=== PATIENT | male | born 1940 | race Caucasian/White ===

== ENCOUNTER → 2017-02-13 | Outpatient (CLI) | payer OTHER | LOC: BMCIMAGING 11:59 | PROVIDERS: ATTEND Internal Medicine | DX: I51.7 Cardiomegaly (principal); M54.6 Pain in thoracic spine ==

== ENCOUNTER 2017-05-27 08:24 | Emergency (ER) | payer OTHER ==
[2017-05-27] MEDS ORDERED: TRANEXAMIC ACID 1,000 MG/10 ML VIAL TP ONE (08:58)
--- NOTE | 2017-05-27 09:06 | EDPHY ---
H & P Time Seen by Provider: 05/27/17 08:46 HPI/ROS: CHIEF COMPLAINT: Epistaxis HISTORY OF PRESENT ILLNESS: 77-year-old male presents to the emergency department with epistaxis. Symptoms began last evening. Was able to control this on his own. He slept fine last night and then when he woke up this morning it started bleeding again. Patient takes Eliquis for history of atrial fibrillation. He has been taking his medication as prescribed. He has never had problems with epistaxis in the past. He denies chest pain or difficulty breathing. Denies feeling lightheaded. No headache. No visual changes. No nausea or vomiting. REVIEW OF SYSTEMS: Constitutional: No fever, no chills. Eyes: No double or blurry vision. ENT: No sore throat. Respiratory: No cough, no shortness of breath. Cardiac: No chest pain. Gastrointestinal: No abdominal pain, vomiting or diarrhea. Genitourinary: No dysuria. Musculoskeletal: No neck or back pain. Skin: No rashes. Neurological: No headache. Past Medical/Surgical History: Gout, atrial fibrillation, hypothyroid Social History: lives in [place] Smoking Status: Former smoker Physical Exam: General Appearance: Alert, no distress. No apparent distress. Eyes: Pupils equal and round. Extraocular motions are all intact. ENT: Mouth: Mucous membranes moist. Blood noted posterior pharynx. Respiratory: No wheezing, rhonchi, or rales, lungs are clear to auscultation. Cardiovascular: Regular rate and rhythm. Gastrointestinal: Abdomen is soft and nontender, no masses, no rebound or guarding, bowel sounds normal. Neurological: Alert and oriented x 3, cranial nerves II through XII grossly intact Skin: Warm and dry, no rashes. Musculoskeletal: Nontender to palpate along the cervical, thoracic or lumbar spine. Neck is supple. Extremities: Full range of motion and no peripheral edema. Psychiatric: Patient is oriented X 3, there is no agitation. Constitutional: Initial Vital Signs Temperature (C) 36.4 C 05/27/17 08:25 Heart Rate 107 H 05/27/17 08:25 Respiratory Rate 16 05/27/17 08:25 Blood Pressure 127/85 H 05/27/17 08:25 O2 Sat (%) 91 L 05/27/17 08:25 O2 Delivery Mode Room Air Allergies/Adverse Reactions: No Known Allergies Allergy (Unverified 01/28/12 16:52) Home Medications: Medication Instructions Recorded Allopurinol [Allopurinol 300 MG 300 mg PO DAILY 10/12/11 (RX)] Eliquis 05/27/17 Levothyroxine 05/27/17 Medical Decision Making Procedures: After consent was obtained from the patient, gauze soaked with TXA and 1% lidocaine without epinephrine was placed in the patient's nose. Clamp was applied. Patient had more hyperemia noted in the left nostril. There is no obvious acute bleeding. Silver nitrate was used in the left nostril. The patient was observed for over 30 min and had no recurring bleeding. No blood in the posterior pharynx. He is comfortable being discharged home. He was encouraged to use nasal lubricant. He was given ENT referral. No rhino rocket needed. Differential Diagnosis: Including but not limited to epistaxis, retained foreign body, anemia - Data Points Medications Given: Discontinued Medications Tranexamic Acid (Cyklokapron) 500 mg TP EDNOW ONE Stop: 05/27/17 08:59 Last Admin: 05/27/17 10:24 Dose: 500 mg Departure - Departure Disposition: Home, Routine, Self-Care Clinical Impression: Epistaxis Condition: Good Instructions: Nosebleed (ED) Additional Instructions: Apply Vaseline or other nasal lubricant inside her nose as discussed especially at night time prior to using her CPAP machine. Try not to blow your nose for at least 48 hr. Follow up with ENT if you have any questions or concerns especially if you have any recurring nosebleeds. Referrals: Max Roland MD [Medical Doctor] - As per Instructions (ENT on-call)
[2017-05-27] MEDS ORDERED: SILVER NITRATE APPLICATOR 1 APPL TP ONE (09:45)
[2017-05-27 10:29] VITALS: BP 132/81; PULSE 81; RESP 18; TEMP 98.2; O2SAT 98
== END 2017-05-27 10:29 | disposition home or self-care (01) ==
LOC: EDUNIT#
PROC: 095KXZZ Destruction of Nasal Mucosa and Soft Tissue, External Approach (ICD-10-PCS; principal; 2017-05-27)
DX: R04.0 Epistaxis (principal); Z79.01 Long term (current) use of anticoagulants; Z87.891 Personal history of nicotine dependence

== ENCOUNTER 2017-05-30 05:13 | Emergency (ER) | payer OTHER ==
[2017-05-30 05:19] VITALS: RESP 18; O2SAT 93
[2017-05-30] MEDS ORDERED: TRANEXAMIC ACID 1,000 MG/10 ML VIAL TP ONE (05:26)
[2017-05-30] MEDS ORDERED: OXYMETAZOLINE 30 ML NASAL SPRAY ONE (05:35)
[2017-05-30] MEDS ORDERED: SILVER NITRATE APPLICATOR 1 APPL TP ONE (05:35)
--- NOTE | 2017-05-30 06:11 | EDPHY ---
H & P Stated Complaint: epistaxis x 1 hr, using blood thinners Time Seen by Provider: 05/30/17 05:41 HPI/ROS: HPI The patient presents with epistaxis of his left naris which began about an hour ago. This is recurrent. He was in the emergency department several days ago for the same. He had TXA packing placed a and cautery performed with resolution of his symptoms. He has not yet followed up with Dr. Roland of ENT. The bleeding is described as the slow dripping sensation. He put on a nasal clamp prior to arrival which has slowed the bleeding significantly. He does sleep with a CPAP machine and tonight was the 1st night using it so he wonders if this is what is causing the bleeding. He is also on Eliquis. REVIEW OF SYSTEMS Constitutional: No fever, no chills. Eyes: No discharge. ENT: No sore throat. Cardiovascular: No chest pain, no palpitations. Respiratory: No cough, no shortness of breath. Gastrointestinal: No abdominal pain, no vomiting. Genitourinary: No hematuria. Musculoskeletal: No back pain. Skin: No rashes. Neurological: No headache. PMHx: History of epistaxis seen in the ER a few days ago Soc Hx: Lives at home with his PHYSICAL General Appearance: Alert, no distress Eyes: Pupils equal and round no pallor or injection ENT, Mouth: Mucous membranes moist, small amount of bleeding from from left naris Respiratory: Breathing comfortably Neurological: A&O, moves all extremities Skin: Warm and dry, no rashes Musculoskeletal: Neck is supple non tender Extremities: symmetrical, full range of motion Psychiatric: Patient is oriented X 3, there is no agitation Source: Patient Exam Limitations: No limitations - Personal History Tetanus Vaccine Date: UNKNOWN - Medical/Surgical History Hx Asthma: No Hx Chronic Respiratory Disease: No Hx Diabetes: No Hx Cardiac Disease: Yes Hx Renal Disease: No Hx Cirrhosis: No Hx Alcoholism: No Hx HIV/AIDS: No Hx Splenectomy or Spleen Trauma: No Other PMH: afib, gout, hypothyroid - Social History Smoking Status: Former smoker Constitutional: Initial Vital Signs Heart Rate 61 05/30/17 05:16 Respiratory Rate 18 05/30/17 05:16 Blood Pressure 109/75 05/30/17 05:16 O2 Sat (%) 93 05/30/17 05:16 O2 Delivery Mode Room Air Allergies/Adverse Reactions: No Known Allergies Allergy (Verified 05/30/17 05:18) Home Medications: Medication Instructions Recorded Allopurinol [Allopurinol 300 MG 300 mg PO DAILY 10/12/11 (RX)] Eliquis 05/27/17 Levothyroxine 05/27/17 Diltiazem 05/30/17 Medical Decision Making Procedures: NOSE BLEED Procedure: Epistaxis control. Indication: nosebleed not controlled by direct pressure. Risks, benefits, alternatives discussed with patient and consent obtained. The left nares was anesthetized with lidocaine with epinephrine. The anterior epistaxis was identified. The patient was treated with packing. Cotton gauze soaked in TXA Following the procedure the patient was re-examined and the bleeding was well controlled. The patient tolerated the procedure well. The procedure was performed by myself. Differential Diagnosis: 77-year-old male on Eliquis with recurrent left-sided anterior epistaxis. Recently packing cauterized. Here bleeding is quite minimal, improved after using nasal clamp. I packed him with tranexamic acid. The bleeding has stopped. He will be discharged and will call ENT today for a follow-up appointment. - Data Points Medications Given: Discontinued Medications Tranexamic Acid (Cyklokapron) 500 mg TP EDNOW ONE Stop: 05/30/17 05:27 Last Admin: 05/30/17 06:04 Dose: Not Given Departure - Departure Disposition: Home, Routine, Self-Care Clinical Impression: Acute anterior epistaxis Condition: Good Instructions: Nosebleed (ED) Referrals: Anatoly Bunn MD [Primary Care Provider] - As per Instructions Max Roland MD [Medical Doctor] - As per Instructions
[2017-05-30 06:23] VITALS: BP 126/80; PULSE 60; TEMP 98.2
== END 2017-05-30 06:30 | disposition home or self-care (01) ==
PROC: 2Y41X5Z Packing of Nasal Region using Packing Material (ICD-10-PCS; principal; 2017-05-30)
DX: R04.0 Epistaxis (principal); Z79.01 Long term (current) use of anticoagulants; Z87.891 Personal history of nicotine dependence

== ENCOUNTER 2017-06-01 03:36 | Emergency (ER) | payer OTHER ==
[2017-06-01 03:42] VITALS: BP 152/99; PULSE 85; RESP 18; TEMP 97.5; O2SAT 92
--- NOTE | 2017-06-01 04:16 | EDPHY ---
H & P Stated Complaint: nosebleed x1 hour [employer]PER[employer] Time Seen by Provider: 06/01/17 03:46 HPI/ROS: HPI The patient presents with epistaxis which began about 30 min ago. This is his 3rd episode now on the last 1 week. He was initially cauterized in the emergency department. I saw him 2 days ago with rebleed and was able to treat it with tranexamic acid. He awoke this morning and began to have bleeding immediately from his left naris. He used his nasal clamp. He is on Eliquis, he has not been using his CPAP machine. REVIEW OF SYSTEMS Constitutional: No fever, no chills. Skin: No rashes. Neurological: No headache. PMHx: Atrial fibrillation Soc Hx: Lives at home with his PHYSICAL General Appearance: Alert, no distress Eyes: Pupils equal and round no pallor or injection ENT, Mouth: Mucous membranes moist, left naris with small amount of bleeding, no bleeding site identified Respiratory: Breathing comfortably Neurological: A&O, moves all extremities Skin: Warm and dry, no rashes Extremities: symmetrical, full range of motion Psychiatric: Patient is oriented X 3, there is no agitation Source: Patient Exam Limitations: No limitations - Personal History Current Tetanus/Diphtheria Vaccine: Unsure Tetanus Vaccine Date: UNKNOWN - Medical/Surgical History Hx Asthma: No Hx Chronic Respiratory Disease: No Hx Diabetes: No Hx Cardiac Disease: Yes Hx Renal Disease: No Hx Cirrhosis: No Hx Alcoholism: No Hx HIV/AIDS: No Hx Splenectomy or Spleen Trauma: No Other PMH: afib, gout, hypothyroid, HTN - Social History Smoking Status: Former smoker Constitutional: Initial Vital Signs Temperature (C) 36.4 C 06/01/17 03:37 Heart Rate 85 06/01/17 03:37 Respiratory Rate 18 06/01/17 03:37 Blood Pressure 152/99 H 06/01/17 03:37 O2 Sat (%) 92 06/01/17 03:37 O2 Delivery Mode Room Air Allergies/Adverse Reactions: No Known Allergies Allergy (Verified 05/30/17 05:18) Home Medications: Medication Instructions Recorded Allopurinol [Allopurinol 300 MG 300 mg PO DAILY 10/12/11 (RX)] Eliquis 05/27/17 Levothyroxine 05/27/17 Diltiazem 05/30/17 Medical Decision Making Procedures: NOSE BLEED Procedure: Epistaxis control. Indication: nosebleed not controlled by direct pressure. Risks, benefits, alternatives discussed with patient and consent obtained. The left nares was anesthetized with lidocaine with epinephrine. The anterior epistaxis was identified. The patient was treated with packing. I inserted a 5.5 cm rhino rocket Following the procedure the patient was re-examined and the bleeding was well controlled. The patient tolerated the procedure well. The procedure was performed by myself. Differential Diagnosis: This is a 77-year-old male on Eliquis for atrial fibrillation who presents with recurrent epistaxis. Plan for treatment with rhino rocket given recurrence of symptoms. I will refer to ENT. I discussed the case with the on-call PA for [facility] in the morning hours. 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 They will see him 5 days after that if he can come off of it. The patient already has an appointment scheduled for next week so I called and left a message on advised him to keep the appointment and call his middle school tutor. He should be able to keep the rhino rocket in until then. Departure - Departure Disposition: Home, Routine, Self-Care Clinical Impression: Acute anterior epistaxis Condition: Good Instructions: Nosebleed (ED) Additional Instructions: Please return to the emergency department if your worse in any way. Otherwise we will try to arrange for ENT follow-up in the morning. Referrals: Anatoly Bunn MD [Primary Care Provider] - As per Instructions Max Roland MD [Medical Doctor] - As per Instructions
== END 2017-06-01 04:19 | disposition home or self-care (01) ==
PROC: 2Y41X5Z Packing of Nasal Region using Packing Material (ICD-10-PCS; principal; 2017-06-01)
DX: R04.0 Epistaxis (principal); I10 Essential (primary) hypertension; Z87.891 Personal history of nicotine dependence; Z79.01 Long term (current) use of anticoagulants

== ENCOUNTER → 2017-06-15 | Outpatient (CLI) | payer OTHER | LOC: FIMAGING 07:38 | PROVIDERS: ATTEND Internal Medicine | DX: K76.0 Fatty (change of) liver, not elsewhere classified (principal); R53.83 Other fatigue; R63.0 Anorexia; R63.4 Abnormal weight loss ==

== ENCOUNTER → 2017-07-04 | Outpatient (CLI) | payer OTHER ==
[~2017-07-04] MED LIST: IOPAMIDOL (ISOVUE-300) 100 ML BTL ONE; IOPAMIDOL (ISOVUE-300) 150 ML BTL ONE; LIDOCAINE 2% JELLY 20 ML (UROJECT) ONE
== END ==
LOC: FIMAGING 08:35
PROVIDERS: ATTEND Internal Medicine
DX: M54.5 Low back pain (principal); M51.34 Other intervertebral disc degeneration, thoracic region
CPT/HCPCS: Q9967

== ENCOUNTER → 2017-07-11 | Outpatient (CLI) | payer OTHER | LOC: FIMAGING 07:51 | PROVIDERS: ATTEND Internal Medicine | DX: M54.6 Pain in thoracic spine (principal); G89.29 Other chronic pain; M51.34 Other intervertebral disc degeneration, thoracic region; M40.204 Unspecified kyphosis, thoracic region; M51.24 Other intervertebral disc displacement, thoracic region; G95.29 Other cord compression ==

== ENCOUNTER → 2017-07-28 | Outpatient (CLI) | payer OTHER | LOC: FIMAGING 09:21 | PROVIDERS: ATTEND Neurological Surgery | DX: M51.36 Other intervertebral disc degeneration, lumbar region (principal); M50.30 Other cervical disc degeneration, unspecified cervical region ==

== ENCOUNTER → 2017-09-13 | Outpatient (CLI) | payer OTHER | LOC: BMCIMAGING 09:32 | PROVIDERS: ATTEND Internal Medicine | DX: J32.2 Chronic ethmoidal sinusitis (principal); J32.0 Chronic maxillary sinusitis ==

== ENCOUNTER 2018-02-06 11:27 | Inpatient (IN) | payer OTHER ==
[2018-02-06] MEDS ORDERED: ONDANSETRON 4 MG/2 ML VIAL IVP ONE (11:31)
[2018-02-06] MEDS ORDERED: ONDANSETRON 4 MG/2 ML VIAL ONE (11:31)
[2018-02-06] MEDS ORDERED: PANTOPRAZOLE SODIUM 40 MG VIAL IVP ONE (12:05)
[2018-02-06] MEDS ORDERED: NS 1,000 ML IV ONE (12:05)
--- NOTE | 2018-02-06 12:05 | EDPHY ---
H & P Stated Complaint: CP Time Seen by Provider: 02/06/18 11:54 HPI/ROS: CHIEF COMPLAINT: Chest pain, vomiting HISTORY OF PRESENT ILLNESS: 77-year-old male with hypertension and atrial fibrillation on Eliquis presents with chest pain and vomiting. Onset of epigastric and chest pain going up and down his chest last evening. [place] like heartburn, took Tums without relief. Multiple episodes of vomiting. When he awoke this morning, no pain or nausea. Onset of recurrent pain and vomiting 1 hr prior to arrival. Pain has resolved and nausea has resolved now. Concern regarding food poisoning. No associated shortness of breath, fever or diarrhea. REVIEW OF SYSTEMS: complete 10 point ROS reviewed and is negative except for the noted elements in the HPI - Personal History Tetanus Vaccine Date: UNKNOWN - Medical/Surgical History Hx Asthma: No Hx Chronic Respiratory Disease: No Hx Diabetes: No Hx Cardiac Disease: Yes Hx Renal Disease: No Hx Cirrhosis: No Hx Alcoholism: No Hx HIV/AIDS: No Hx Splenectomy or Spleen Trauma: No Other PMH: afib, gout, hypothyroid, HTN - Social History Smoking Status: Former smoker Alcohol Use: Other (2-3 drinks/day) Drug Use: None Additional Social History: - Physical Exam Exam: General Appearance: Alert, pleasant Eyes: Pupils equal and round, no conjunctival pallor or injection ENT, Mouth: Mucous membranes moist Neck: Normal inspection Respiratory: Lungs are clear to auscultation Cardiovascular: Regular rate and rhythm Gastrointestinal: Abdomen is soft, epigastric tenderness Neurological: A&O, nonfocal, normal gait Skin: Warm and dry, no rash Extremities: Nontender, no pedal edema Psychiatric: Mood and affect normal Constitutional: Initial Vital Signs Temperature (C) 37.7 C 02/06/18 11:30 Heart Rate 85 02/06/18 11:30 Respiratory Rate 18 02/06/18 11:30 Blood Pressure 104/69 02/06/18 11:30 O2 Sat (%) 89 L 02/06/18 11:30 O2 Delivery Mode Nasal Cannula O2 (L/minute) 2 Allergies/Adverse Reactions: No Known Allergies Allergy (Verified 05/30/17 05:18) Home Medications: Medication Instructions Recorded Allopurinol [Allopurinol 300 MG 300 mg PO DAILY 10/12/11 (RX)] Apixaban [Eliquis] 5 mg PO BID 05/27/17 Diltiazem HCl [Cartia XT 180mg] 180 mg PO DAILY 05/30/17 Fluticasone Nasal [Flonase Nasal 1 sprays NASAL DAILY PRN 02/06/18 [place] (RX)] Levothyroxine [Synthroid 75 mcg 75 mcg PO DAILY06 02/06/18 (*)] Naproxen Sodium [Aleve 220 MG (*)] 220 mg PO BID PRN 02/06/18 Medical Decision Making - Diagnostics EKG Interpretation: EKG interpreted by me reveals normal sinus rhythm, rate 83, multiple PVCs, right bundle branch block. Interpretation: Abnormal EKG Imaging Results: Imaging Impressions Chest X-Ray 02/06/18 11:55 Impression: Stable chest without acute cardiopulmonary process. Abdomen Ultrasound 02/06/18 12:36 Impression: 1. Cholelithiasis without sonographic evidence of acute cholecystitis. 2. Fatty liver. Findings and recommendations discussed with KEO CAPONE at 1313 hour, 2017. Imaging: Discussed imaging studies w/ square dance caller Radiologist ED Course/Re-evaluation: This patient presents with chest pain and vomiting. Stat EKG reveals no evidence of ischemia. Initial troponin is normal. Clinical scenario suggests GI etiology symptoms. Initial laboratory studies reveal elevated LFTs. Right upper quadrant ultrasound ordered and reveals gallstones, without evidence of cholecystitis. Lipase is pending. Patient feels better, no pain now. 3:00 p.m.-lipase is still pending. Serial dilutions of lipase by company laborer b/c of elevation. d/w pt, agrees to admission. Feels better now. No pain. Will admit to the hospitalist service for acute pancreatitis. Differential Diagnosis: Differential diagnosis includes though it is not limited to appendicitis, cholecystitis, diverticulitis, pyelonephritis, bowel perforation, small bowel obstruction. - Data Points Laboratory Results: Laboratory Results 02/06/18 12:45 02/06/18 11:40 02/06/18 02/06/18 02/06/18 12:45 11:40 11:40 WBC 16.25 10^3/uL H 10^3/uL (3.80-9.50) RBC 4.58 10^6/uL 10^6/uL (4.40-6.38) Hgb 15.8 g/dL g/dL (13.7-17.5) Hct 44.9 % % (40.0-51.0) MCV 98.0 fL fL (81.5-99.8) MCH 34.5 pg H pg (27.9-34.1) MCHC 35.2 g/dL g/dL (32.4-36.7) RDW 13.3 % % (11.5-15.2) Plt Count 189 10^3/uL 10^3/uL (150-400) MPV 10.0 fL fL (8.7-11.7) Neut % (Auto) Not Reported Lymph % (Auto) Not Reported [place] % (Auto) Not Reported Eos % (Auto) Not Reported Baso % (Auto) Not Reported Nucleat RBC Rel Count Not Reported Absolute Neuts (auto) Not Reported Absolute Lymphs (auto) Not Reported Absolute Monos (auto) Not Reported Absolute Eos (auto) Not Reported Absolute Basos (auto) Not Reported Absolute Nucleated RBC Not Reported Immature Gran % Not Reported Seg Neutrophils % 92.0 % % Band Neutrophils % 0.0 % % Lymphocytes % 3.0 % % Monocytes % 5.0 % % Eosinophils % 0.0 % % Basophils % 0.0 % % Metamyelocytes % 0.0 % % Myelocytes % 0.0 % % Promyelocytes % 0.0 % % Blast Cells % 0.0 % % Immature Gran # Not Reported Absolute Seg Neuts 14.95 10^/uL H 10^/uL (1.70-6.50) Absolute Band Neuts 0.00 10^3/uL 10^3/uL (0.00-0.70) Absolute Lymphocytes 0.49 10^3/uL L 10^3/uL (1.00-3.00) Absolute Monocytes 0.81 10^3/uL H 10^3/uL (0.30-0.80) Absolute Eosinophils 0.00 10^3/uL L 10^3/uL (0.03-0.40) Absolute Basophils 0.00 10^3/uL L 10^3/uL (0.02-0.10) Absolute Metamyelocyte 0.00 10^3/mL 10^3/mL (0.00-0.00) Absolute Myelocytes 0.00 10^3/mL 10^3/mL (0.00-0.00) Absolute Promyelocytes 0.00 10^3/uL 10^3/uL (0.00-0.00) Absolute Plasma Cells 0.00 10^3/uL 10^3/uL (0.00-0.00) Nucleated RBCs 0 /100 WBC /100 WBC (0-0) Absolute Blast Cells 0.00 10^3/uL 10^3/uL (0.00-0.00) Plasma Cells % 0.0 % % Platelet Estimate ADEQUATE (ADEQ) D-Dimer Sodium 138 mEq/L mEq/L (135-145) Potassium 4.3 mEq/L mEq/L (3.3-5.0) Chloride 102 mEq/L mEq/L (97-110) Carbon Dioxide 27 mEq/l mEq/l (22-31) Anion Gap 9 mEq/L mEq/L (8-16) BUN 20 mg/dL mg/dL (7-23) Creatinine 0.9 mg/dL mg/dL (0.7-1.3) Estimated GFR > 60 Glucose 104 mg/dL H mg/dL (70-100) Calcium 9.5 mg/dL mg/dL (8.5-10.4) Total Bilirubin 4.5 mg/dL H mg/dL (0.1-1.4) Conjugated Bilirubin 2.2 mg/dL H mg/dL (0.0-0.5) Unconjugated Bilirubin 2.3 mg/dL H mg/dL (0.0-1.1) AST 461 IU/L H IU/L (17-59) ALT 288 IU/L H IU/L (21-72) Alkaline Phosphatase 121 IU/L IU/L (38-126) POC Troponin I NT-Pro-B Natriuret Pep 1200 pg/mL H pg/mL (0-450) Total Protein 6.4 g/dL g/dL (6.3-8.2) Albumin 3.6 g/dL g/dL (3.5-5.0) Lipase 6500 IU/L H IU/L (23-300) 02/06/18 02/06/18 11:40 11:33 WBC RBC Hgb Hct MCV MCH MCHC RDW Plt Count MPV Neut % (Auto) Lymph % (Auto) [place] % (Auto) Eos % (Auto) Baso % (Auto) Nucleat RBC Rel Count Absolute Neuts (auto) Absolute Lymphs (auto) Absolute Monos (auto) Absolute Eos (auto) Absolute Basos (auto) Absolute Nucleated RBC Immature Gran % Seg Neutrophils % Band Neutrophils % Lymphocytes % Monocytes % Eosinophils % Basophils % Metamyelocytes % Myelocytes % Promyelocytes % Blast Cells % Immature Gran # Absolute Seg Neuts Absolute Band Neuts Absolute Lymphocytes Absolute Monocytes Absolute Eosinophils Absolute Basophils Absolute Metamyelocyte Absolute Myelocytes Absolute Promyelocytes Absolute Plasma Cells Nucleated RBCs Absolute Blast Cells Plasma Cells % Platelet Estimate D-Dimer 0.93 ug/mLFEU H ug/mLFEU (0.00-0.50) Sodium Potassium Chloride Carbon Dioxide Anion Gap BUN Creatinine Estimated GFR Glucose Calcium Total Bilirubin Conjugated Bilirubin Unconjugated Bilirubin AST ALT Alkaline Phosphatase POC Troponin I 0.02 ng/mL ng/mL (0.00-0.08) NT-Pro-B Natriuret Pep Total Protein Albumin Lipase Medications Given: Discontinued Medications Sodium Chloride (Ns) 1,000 mls @ 0 mls/hr IV ONCE ONE; Wide Open PRN Reason: Protocol Stop: 02/06/18 12:06 Last Admin: 02/06/18 12:16 Dose: 1,000 mls Ondansetron HCl (Zofran) 4 mg IVP EDNOW ONE Stop: 02/06/18 11:32 Last Admin: 02/06/18 11:37 Dose: 4 mg Pantoprazole Sodium (Protonix) 40 mg IVP EDNOW ONE Stop: 02/06/18 12:06 Last Admin: 02/06/18 12:17 Dose: 40 mg Point of Care Test Results: Chemistry 02/06/18 11:33 POC Troponin I 0.02 ng/mL ng/mL (0.00-0.08) Departure - Departure Disposition: [facility] Inpatient Acute Clinical Impression: Acute pancreatitis Qualifiers: Pancreatitis type: unspecified pancreatitis type Acute pancreatitis complication: unspecified Qualified Code(s): K85.90 - Acute pancreatitis without necrosis or infection, unspecified Condition: Fair
[2018-02-06 13:09] LABS: PLATELET COUNT 189 10^3/uL (150-400)
--- NOTE | 2018-02-06 14:28 | CPEKG ---
Test Reason : OPEN Blood Pressure : / mmHG Vent. Rate : 083 BPM Atrial Rate : 082 BPM P-R Int : 180 ms QRS Dur : 143 ms QT Int : 408 ms P-R-T Axes : 030 -64 003 degrees QTc Int : 480 ms Sinus rhythm Ventricular trigeminy Probable left atrial enlargement RBBB and LAFB Confirmed by Sherri Sinclair ([id number]) on 02/06/2018 2:28:02 PM Referred By: Confirmed By:Sherri Sinclair
[2018-02-06] MEDS ORDERED: HYDROmorphone HCL 0.5 MG/0.5 ML SYR IVP PRN (15:14)
[2018-02-06] MEDS ORDERED: ONDANSETRON DISINTEGRATING 4 MG TAB PO PRN (15:14)
[2018-02-06] MEDS ORDERED: ONDANSETRON 4 MG/2 ML VIAL IVP PRN (15:14)
[2018-02-06] MEDS ORDERED: PROMETHAZINE HCL 25 MG/ML INJ IVP PRN (15:14)
[2018-02-06] MEDS ORDERED: oxyCODONE IR 5 MG TAB PO PRN (15:14)
[2018-02-06] MEDS ORDERED: ACETAMINOPHEN 325 MG TAB PO PRN (15:14)
[2018-02-06] MEDS ORDERED: FLUTICASONE NASAL 120 SPRAYS/16 GM MDI EACHNARE PRN (15:18)
--- NOTE | 2018-02-06 15:36 | PDGENHP ---
History and Physical - Chief Complaint abdominal pain - History of Present Illness 77 yo M w/PMH of HTN, a fib presenting with epigastric and chest pain beginning last night. He notes he ate a late dinner and then several hours later developed severe mid epigastric/chest and abdominal pain. It was burning and associated with nausea and vomiting. He has never had pain like this in the past. It continued until he came to the ER and was given pain medicine and it has resolved since then. He notes that he does drink several alcoholic beverages per day, sometimes more, but did not drink more heavily than usual in the last couple of days. He has not had fever or chills, he has not had any chest pain prior to this episode, he has no history of heart disease or lung disease other than a fib. History Information - Allergies/Home Medication List Allergies/Adverse Reactions: No Known Allergies Allergy (Verified 05/30/17 05:18) Home Medications: Allopurinol [Allopurinol 300 MG (RX)] 300 mg PO DAILY 10/12/11 [Last Taken 02/06] Apixaban [Eliquis] 5 mg PO BID 05/27/17 [Last Taken 02/06/18] Diltiazem HCl [Cartia XT 180mg] 180 mg PO DAILY 05/30/17 [Last Taken 02/06/18] Fluticasone Nasal [Flonase Nasal [place] (RX)] 1 sprays NASAL DAILY PRN 02/06/18 [ Last Taken Unknown] Levothyroxine [Synthroid 75 mcg (*)] 75 mcg PO DAILY06 02/06/18 [Last Taken ] Naproxen Sodium [Aleve 220 MG (*)] 220 mg PO BID PRN 02/06/18 [Last Taken 1 Week Ago ~01/30/18] I have personally reviewed and updated: family history, medical history, social history, surgical history - Past Medical History atrial fibrillation, hypertension, pulmonary embolism Additional medical history: gout. hypothyroid - Surgical History Reports: no pertinent surgical hx - Family History Positive for: non-pertinent - Social History Smoking Status: Former smoker Alcohol Use: Other (2-3 drinks/day) Drug Use: None Review of Systems Review of Systems: ROS: 10pt was reviewed & negative except for what was stated in HPI & below Physical Exam Physical Exam: Temp Pulse Resp BP Pulse Ox 37.7 C 74 18 119/94 H 98 02/06/18 11:30 02/06/18 14:54 02/06/18 14:54 02/06/18 14:54 02/06/18 14:54 Constitutional: no apparent distress, appears nourished, obese Eyes: PERRL Ears, Nose, Mouth, Throat: moist mucous membranes, hearing normal Cardiovascular: regular rate and rhythym, no murmur, rub, or gallop, edema Respiratory: no respiratory distress, no rales or rhonchi, clear to auscultation Gastrointestinal: soft, non-tender abdomen, No normoactive bowel sounds, No rebound, No distension Genitourinary: no bladder tenderness Skin: warm, normal color Musculoskeletal: no muscle tenderness Neurologic: AAOx3 Psychiatric: interacting appropriately, not anxious, not encephalopathic Lab Data & Imaging Review 02/06/18 12:45 02/06/18 11:40 WBC 16.25 10^3/uL (3.80-9.50) H 02/06/18 12:45 RBC 4.58 10^6/uL (4.40-6.38) 02/06/18 12:45 Hgb 15.8 g/dL (13.7-17.5) 02/06/18 12:45 Hct 44.9 % (40.0-51.0) 02/06/18 12:45 MCV 98.0 fL (81.5-99.8) 02/06/18 12:45 MCH 34.5 pg (27.9-34.1) H 02/06/18 12:45 MCHC 35.2 g/dL (32.4-36.7) 02/06/18 12:45 RDW 13.3 % (11.5-15.2) 02/06/18 12:45 Plt Count 189 10^3/uL (150-400) 02/06/18 12:45 MPV 10.0 fL (8.7-11.7) 02/06/18 12:45 Neut % (Auto) Not Reported 02/06/18 12:45 Lymph % (Auto) Not Reported 02/06/18 12:45 [place] % (Auto) Not Reported 02/06/18 12:45 Eos % (Auto) Not Reported 02/06/18 12:45 Baso % (Auto) Not Reported 02/06/18 12:45 Nucleat RBC Rel Count Not Reported 02/06/18 12:45 Absolute Neuts (auto) Not Reported 02/06/18 12:45 Absolute Lymphs (auto) Not Reported 02/06/18 12:45 Absolute Monos (auto) Not Reported 02/06/18 12:45 Absolute Eos (auto) Not Reported 02/06/18 12:45 Absolute Basos (auto) Not Reported 02/06/18 12:45 Absolute Nucleated RBC Not Reported 02/06/18 12:45 Immature Gran % Not Reported 02/06/18 12:45 Seg Neutrophils % 92.0 % 02/06/18 12:45 Band Neutrophils % 0.0 % 02/06/18 12:45 Lymphocytes % 3.0 % 02/06/18 12:45 Monocytes % 5.0 % 02/06/18 12:45 Eosinophils % 0.0 % 02/06/18 12:45 Basophils % 0.0 % 02/06/18 12:45 Metamyelocytes % 0.0 % 02/06/18 12:45 Myelocytes % 0.0 % 02/06/18 12:45 Promyelocytes % 0.0 % 02/06/18 12:45 Blast Cells % 0.0 % 02/06/18 12:45 Immature Gran # Not Reported 02/06/18 12:45 Absolute Seg Neuts 14.95 10^/uL (1.70-6.50) H 02/06/18 12:45 Absolute Band Neuts 0.00 10^3/uL (0.00-0.70) 02/06/18 12:45 Absolute Lymphocytes 0.49 10^3/uL (1.00-3.00) L 02/06/18 12:45 Absolute Monocytes 0.81 10^3/uL (0.30-0.80) H 02/06/18 12:45 Absolute Eosinophils 0.00 10^3/uL (0.03-0.40) L 02/06/18 12:45 Absolute Basophils 0.00 10^3/uL (0.02-0.10) L 02/06/18 12:45 Absolute Metamyelocyte 0.00 10^3/mL (0.00-0.00) 02/06/18 12:45 Absolute Myelocytes 0.00 10^3/mL (0.00-0.00) 02/06/18 12:45 Absolute Promyelocytes 0.00 10^3/uL (0.00-0.00) 02/06/18 12:45 Absolute Plasma Cells 0.00 10^3/uL (0.00-0.00) 02/06/18 12:45 Nucleated RBCs 0 /100 WBC (0-0) 02/06/18 12:45 Absolute Blast Cells 0.00 10^3/uL (0.00-0.00) 02/06/18 12:45 Plasma Cells % 0.0 % 02/06/18 12:45 Platelet Estimate ADEQUATE (ADEQ) 02/06/18 12:45 D-Dimer 0.93 ug/mLFEU (0.00-0.50) H 02/06/18 11:40 Sodium 138 mEq/L (135-145) 02/06/18 11:40 Potassium 4.3 mEq/L (3.3-5.0) 02/06/18 11:40 Chloride 102 mEq/L (97-110) 02/06/18 11:40 Carbon Dioxide 27 mEq/l (22-31) 02/06/18 11:40 Anion Gap 9 mEq/L (8-16) 02/06/18 11:40 BUN 20 mg/dL (7-23) 02/06/18 11:40 Creatinine 0.9 mg/dL (0.7-1.3) 02/06/18 11:40 Estimated GFR > 60 02/06/18 11:40 Glucose 104 mg/dL (70-100) H 02/06/18 11:40 Calcium 9.5 mg/dL (8.5-10.4) 02/06/18 11:40 Total Bilirubin 4.5 mg/dL (0.1-1.4) H 02/06/18 11:40 Conjugated Bilirubin 2.2 mg/dL (0.0-0.5) H 02/06/18 11:40 Unconjugated Bilirubin 2.3 mg/dL (0.0-1.1) H 02/06/18 11:40 AST 461 IU/L (17-59) H 02/06/18 11:40 ALT 288 IU/L (21-72) H 02/06/18 11:40 Alkaline Phosphatase 121 IU/L (38-126) 02/06/18 11:40 POC Troponin I 0.02 ng/mL (0.00-0.08) 02/06/18 11:33 NT-Pro-B Natriuret Pep 1200 pg/mL (0-450) H 02/06/18 11:40 Total Protein 6.4 g/dL (6.3-8.2) 02/06/18 11:40 Albumin 3.6 g/dL (3.5-5.0) 02/06/18 11:40 Lipase 6500 IU/L (23-300) H 02/06/18 11:40 Visualized and Interpreted Chest x-ray results: Yes Chest X-Ray results: no infiltrate Visualized and Interpreted EKG results: Yes EKG Interpretation: Positive for: normal sinsus rhythm EKG additional interpertation: ventricular trigeminy Assessment & Plan Assessment: Acute pancreatitis (Acute) 77 yo M with hx of a fib, htn, heavy etoh use presenting with acute pancreatitis # acute pancreatitis: with lipase over 6000 and hx of etoh use which could be underlying etiology versus gallstones appreciated on US. He is clinically already improved though BS remain minimal. Will continue IVF, antiemetics as needed, IV opiates. # elevated lfts: with ast > alt in pattern c/w alc hep though patient minimizes his etoh use. No e/o acute cholecystitis and fatty liver noted on imaging. Will trend LFTs, if not improving will need to obtain further imaging to r/o choledocholithiasis versus GI consultation # abd/chest pain: related to above, given hx of a fib and arythmia noted on ecg will monitor on tele and trend trops # a fib: currently without RVR, continue op meds with the exception of eliquis which will be held in case intervention needed # HTN: controlled on diltiazem # hypothyroid: continue lt4 # observation status Patient new to my care. Old records reviewed and summarized as above. Care plan reviewed with ER doctor.
[2018-02-06] MEDS: NS 1,000 ML IV SCH ×2 (17:27→21:27)
[2018-02-07] MEDS: LEVOTHYROXINE 75 MCG TAB PO SCH (05:17)
[2018-02-07 06:23] LABS: PLATELET COUNT 160 10^3/uL (150-400)
[2018-02-07] MEDS: ALLOPURINOL 300 MG TAB PO SCH (08:55)
[2018-02-07] MEDS: DILTIAZEM CD 180 MG CAP PO SCH (08:55)
[2018-02-07] MEDS: NS 1,000 ML IV SCH ×2 (08:59→14:43)
--- NOTE | 2018-02-07 09:21 | HOSPPROG ---
Hospitalist Progress Note Assessment/Plan: 77 yo M with hx of a fib, htn, heavy etoh use presenting with acute pancreatitis # acute pancreatitis: with lipase over 6000 and hx of etoh use which could be underlying etiology versus gallstones appreciated on US. He is clinically already improved however pain did worsen significantly with clear liquid trial. Will continue IVF, antiemetics as needed, IV opiates. # elevated lfts: with ast > alt in pattern c/w alc hep though patient minimizes his etoh use. No e/o acute cholecystitis and fatty liver noted on imaging. Will trend LFTs, if not improving will need to obtain further imaging to r/o choledocholithiasis versus GI consultation # abd/chest pain: related to above, given hx of a fib and arythmia noted on ecg will monitor on tele and trend trops # a fib: currently without RVR, continue op meds with the exception of eliquis which will be held in case intervention needed--if LFTs continue to trend down overnight would resume eliquis in the am # HTN: controlled on diltiazem # hypothyroid: continue lt4 # IP status, patient still unable to tolerate PO and will require > 48 hours stay for eval/mgmt of above Subjective: no significant overnight events, patient attempted juice today and had worse pain, no n/v, pain not as severe as yesterday Objective: Vital Signs Temp Pulse Resp BP Pulse Ox 36.8 C 57 L 20 150/73 H 97 02/07/18 08:00 02/07/18 08:00 02/07/18 08:00 02/07/18 08:00 02/07/18 08:00 Laboratory Results 02/07/18 06:00 02/07/18 06:00 02/06/18 02/07/18 02/08/18 05:59 05:59 05:59 Intake Total 4400 Output Total 250 225 Balance 4150 -225 Constitutional: no apparent distress, appears nourished, obese Eyes: PERRL Ears, Nose, Mouth, Throat: moist mucous membranes, hearing normal Cardiovascular: regular rate and rhythym, no murmur, rub, or gallop, edema Respiratory: no respiratory distress, no rales or rhonchi, clear to auscultation Gastrointestinal: soft, non-tender abdomen, No normoactive bowel sounds, No rebound, No distension Genitourinary: no bladder tenderness Skin: warm, normal color Musculoskeletal: no muscle tenderness Neurologic: AAOx3 Psychiatric: interacting appropriately, not anxious, not encephalopathic ICD10 Worksheet Patient Problems: Problems Problem Status Onset Acute pancreatitis Acute Atrial flutter Active
[2018-02-07] MEDS: PANTOPRAZOLE SODIUM 40 MG VIAL IVP SCH (10:21)
--- NOTE | 2018-02-07 11:36 | ASMTCASEMG ---
Living Arrangements What is your living Answers: With Spouse arrangement? Who do you live with? Type Of Residence What kind of residence do Answers: House you live in? Discharge Plan Comments Coordination Status Comments Notes: Pts case discussed in tx rounds. Pt is a 77 y/o man admitted for acute pancreatitis. Pt drinks several alcoholic beverages a night. Dr. Dumont plans on speaking to pt about her substance abuse program. CM met w/ pt and to provide alochol resources and educational material. CM was unable to complete CAGE because pt reportedly went through this 5 times already. Pts scuffed and stated that this is ridiculous. It appears that pt and are resistant to the idea that pts alcohol consumption is problematic. Pt will most likely d/c independent when medically stable. No therapies ordered at this time. CM available for changes. Plan: Independent Date Signed: 02/07/2018 11:36 AM Electronically Signed By:KENYON Rollins
--- NOTE | 2018-02-07 13:52 | PDMN ---
Medical Necessity Medical necessity: Change to inpt as of 02/07/18 @ 12:02. Pt meets inpt criteria per MD order and MCG M-250, Pancreatitis, 2 days. 77 y/o admitted w/epigastric/ chest and abdominal pain, diagnosed w/acute pancreatitis, Lipase 6500, bili's elevated, AST 461, ALT 288. Hx heavy alcohol use, afib htn. IVF, IV Protonix. anticipate>2MN for management of acute pancreatitis.
[2018-02-08] MEDS: LEVOTHYROXINE 75 MCG TAB PO SCH (06:35)
[2018-02-08 08:04] LABS: INR 1.28 (0.83-1.16); PROTIME(PATIENT) 16.2 SEC (12.0-15.0)
[2018-02-08] MEDS ORDERED: FUROSEMIDE 20 MG/2 ML VIAL IVP ONE ×2 (08:38→11:45)
--- NOTE | 2018-02-08 08:39 | HOSPPROG ---
Hospitalist Progress Note Assessment/Plan: # acute pancreatitis - d/t gallstones vs etOH - cont conservative management - will need cholecystectomy prior to dc # elevated LFTs - more of an obstructive pattern today - will d/w GI regarding ERCP vs MRCP # etOH - no s/sw w/d yet # vol overload - will give lasix 20mg iv x 1 and slow down IVF # a-fib - rate controlled - holding eliquis - cont dilt # htn - controlled # hypothyroid - synthroid Subjective: abd pain better; tolerated apple juic yesterday without worsening of abd pain Objective: Vital Signs Temp Pulse Resp BP Pulse Ox 36.8 C 60 16 135/77 H 98 02/08/18 07:16 02/08/18 07:16 02/08/18 07:16 02/08/18 07:16 02/08/18 07:16 Laboratory Results 02/07/18 06:00 02/08/18 07:29 02/07/18 02/08/18 02/09/18 05:59 05:59 05:59 Intake Total 4400 5400 Output Total 250 1575 Balance 4150 3825 PT 16.2 SEC (12.0-15.0) H 02/08/18 07:29 INR 1.28 (0.83-1.16) H 02/08/18 07:29 chart reviewed US reviewed tele reviewed - Physical Exam Constitutional: no apparent distress, appears nourished Cardiovascular: no murmur, rub, or gallop, irregularly irregular Respiratory: no respiratory distress, no rales or rhonchi, clear to auscultation Gastrointestinal: other (soft, mild RUQ TTP with palpation), No mejia's sign, No guarding, No rebound, No distension ICD10 Worksheet Patient Problems: Problems Problem Status Onset Acute pancreatitis Acute Atrial flutter Active
[2018-02-08] MEDS ORDERED: GADOBUTROL 10 ML VIAL IVP ONE (09:40)
--- NOTE | 2018-02-08 09:47 | GCON ---
REFERRING PHYSICIAN: Geovani Coppola MD CHIEF COMPLAINT: Abnormal liver function tests, gallstone pancreatitis. HISTORY OF PRESENT ILLNESS: I have been asked to see this very pleasant 77-year-old gentleman by Dr. Nito Coppola in consultation for abnormal liver function tests and gallstone pancreatitis. The michael ent has a history of hypertension, atrial fibrillation. He has been on anticoagulations, has had pre vious ablation for atrial fibrillation, atrial flutter. He has not been on anticoagulation since adm ission. He presented to the hospital with onset of epigastric pain and chest pain. The pain lasted for several hours. He did have some associated nausea. He presented to the emergency department. H e does report a history of several alcoholic beverages per day. On admission he was noted to have an elevated total bilirubin of 4.4, with unconjugated bilirubin of 2.3 with AST of 461, ALT of 288 with a normal alkaline phosphatase and a lipase of 6500, consists with gallstone pancreatitis. Ultrasoun d showed a gallbladder that was nondistended with hyperechoic foci within the lumen suggesting sludge and stones. There was no gallbladder wall thickening. Intrahepatic ducts were not dilated. He has had clinical improvement, with improvement of his liver function tests. However, his bilirubin is s till elevated at 6.2, conjugated 3.4, unconjugated 2.8, ALT was 255 with an AST of 192, alkaline phos phatase 139. Repeat lipase was 1295. He did have evidence of fatty liver on ultrasound. The patien t is clinically improved with no significant abdominal pain. Asked to see patient for further evalua tion for possible choledocholithiasis. PAST MEDICAL HISTORY: Remarkable for atrial fibrillation, atrial flutter status post ablation on chr onic anticoagulation. Hypertension, gout, hypothyroidism. PAST SURGICAL HISTORY: Unremarkable other than previous ablation. MEDICATIONS: Prior to admission included allopurinol, Eliquis, diltiazem, Flonase, Synthroid and nap roxen. FAMILY HISTORY: Negative as it pertains to chief complaint. SOCIAL HISTORY: Alcohol as above, 2-3 drinks per day. Former smoker. REVIEW OF SYSTEMS: Negative for 10 systems other than mentioned in the HPI. PHYSICAL EXAM: VITAL SIGNS: 135/77, heart rate is 60, respiratory rate 16, 98% sat on room air, tem perature 36.8. GENERAL: Very pleasant gentleman no acute distress. HEAD AND NECK: Normocephalic, atraumatic. EOM I. Neck is supple. No cervical adenopathy. Mucous membranes moist. LUNGS: Clear. CARDIAC: Normal S1, S2. ABDOMEN: Soft, nontender, normal bowel sounds. No hepatosplenomegaly. EXTREMITIES: With venous stasis changes, with trace edema, without cyanosis or clubbing. SKIN: Warm, dry, intact. NEURO: Nonfocal. PSYCH: Alert and oriented x3 with normal affect. LABORATORY DATA: Serum sodium 138, potassium 3.8, chloride 106, CO2 of 25, BUN of 14, creatinine 0.7 , total bilirubin 6.2, conjugated bilirubin 3.4, unconjugated bilirubin of 2.8, AST 192, ALT 255, alk josette phosphatase of 139, CBC: Hemoglobin of 14.2 with hematocrit 41.6, white count of 9.44, platelet s 160,000. PT of 16.2 with an INR of 1.28. IMPRESSION: A 77-year-old male with clinical presentation consistent with gallstone pancreatitis wit h evidence of gallstones and sludge in the gallbladder. He does not have a dilated duct on ultrasoun d. He also has evidence of fatty liver. He has a mixed pattern with elevated bilirubin, partially c onjugated and unconjugated. With improvement of his liver function tests with slightly elevated tessie line phosphatase 139. Questionable choledocholithiasis versus a fatty liver, alcoholic liver disease . RECOMMENDATIONS: Proceed with diagnostic MRCP. If suggestive of choledocholithiasis, proceed with E [employer] later on this afternoon. Will follow with you. Thank you for allowing me to participate in the care of this patient. /[id number]/MODL
[2018-02-08] MEDS: ALLOPURINOL 300 MG TAB PO SCH (11:29)
[2018-02-08] MEDS: DILTIAZEM CD 180 MG CAP PO SCH (11:29)
[2018-02-08] MEDS: PANTOPRAZOLE SODIUM 40 MG VIAL IVP SCH (11:29)
--- NOTE | 2018-02-08 12:03 | ASMTCMCOM ---
CM Note CM Note Notes: 02/08/2018 Case Management Note Discussed pt during rounds this morning. Mil [id number] present in room. Pt had MRI of abdomen today, may need gallbladder removed. D/C likely several days away. Case Management d/c poc: anticipating independent with follow up as directed. Case Management to follow. Date Signed: 02/08/2018 12:02 PM Electronically Signed By:Ilsa Stinson RN
[2018-02-08] MEDS: NS 1,000 ML IV SCH (16:19)
[2018-02-08] MEDS ORDERED: PHYTONADIONE 10 MG in NS 50 ML IV ONE (16:46)
--- NOTE | 2018-02-08 17:08 | SOAPPROG ---
[facility] Progress Note Assessment/Plan: Assessment: 77 MALE WITH GALLSTONE PANCREATITIS LIPASE DOWN LFTS UP MRCP NEG FOR STONES AFEBRILE/ PAIN IMPROVED RISKS AND OPTIONS FULLY DISCUSSED Plan:LAP MENA WITH GRAMS IN THE AM 02/08/18 17:06 Objective: Vital Signs Temp Pulse Resp BP Pulse Ox 36.9 C 52 L 15 139/73 H 93 02/08/18 15:48 02/08/18 15:48 02/08/18 15:48 02/08/18 15:48 02/08/18 15:48 Laboratory Results 02/07/18 06:00 02/08/18 07:29 02/07/18 02/08/18 02/09/18 05:59 05:59 05:59 Intake Total 4400 5400 Output Total 250 1575 1625 Balance 4150 3825 -1625 PT 16.2 SEC (12.0-15.0) H 02/08/18 07:29 INR 1.28 (0.83-1.16) H 02/08/18 07:29 ICD10 Worksheet Patient Problems: Problems Problem Status Onset Acute pancreatitis Acute Atrial flutter Active
--- NOTE | 2018-02-08 17:24 | GCON ---
DATE OF CONSULTATION: 02/08/2018 HISTORY OF PRESENT ILLNESS: This is a 77-year-old male with history of hypertension and atrial fibri llation, normally on Eliquis, who presented to the emergency room on 02/06, complaining of chest pain and vomiting. The patient does endorse drinking several alcoholic beverages per day and says, "I pr obably should cut back." He denies fever and chills. Denies history of heart disease or heart attac k. He underwent a full cardiac workup in the emergency room that was negative. He underwent an abdo priyanka ultrasound as well that revealed cholelithiasis and fatty liver. He was seen by Dr. Ronel yo Gastroenterology earlier today who ordered an MRCP. The MRCP revealed no evidence of choledocholi thiasis, but it did reveal mild biliary dilation as well as mild diffuse pancreatitis. It also revea led acute versus chronic cholecystitis with sludge and stones. At this time, the patient reports jai t he is feeling much better. He denies abdominal pain. On admission, he had an elevated total bilir ubin of 4.4, with unconjugated bilirubin of 2.3, an AST of 461, ALT of 288, normal alkaline phosphata se, and lipase of 6500. Since then, all of his LFTs and lipase have been trending down. PAST MEDICAL HISTORY: Atrial fibrillation, status post ablation, chronically anticoagulated, hyperte nsion, gout, hypothyroidism. PAST SURGICAL HISTORY: Unremarkable other than previous ablation. MEDICATIONS: Allopurinol, Eliquis, diltiazem, Flonase, Synthroid, and naproxen. FAMILY HISTORY: Noncontributory. SOCIAL HISTORY: Patient reports that he drinks at least 2-3 drinks per day, often more. He is a for ashley smoker. He quit 40 years ago. REVIEW OF SYSTEMS: Ten-point review of systems was performed and is negative, aside from what is in the HPI. PHYSICAL EXAM: GENERAL: Well-appearing man sitting in hospital chair in his hospital room in no acu te distress. HEENT: Normocephalic, atraumatic. Mucous membranes moist. No gross hearing deficits; he does have scleral icterus. CARDIAC: Regular rate and rhythm. LUNGS: Clear to auscultation perry aterally. No increased work of breathing. ABDOMEN: Soft, nontender, normoactive bowel sounds. MUS CULOSKELETAL: Moves all extremities equally. SKIN: Warm, dry, intact. Mild jaundice. NEURO: My ssly intact. He is alert and oriented x3. PSYCHIATRIC: Appropriate mood and affect. IMPRESSION AND PLAN: The patient was seen by Dr. Bhatti and myself. He will need a laparoscopic chol ecystectomy with cholangiogram. This surgery is planned for tomorrow. We discussed all risks and op tions fully, and patient wishes to proceed. He does still have elevated pro time and international n ormalized ratio. We have ordered vitamin K as well as repeat LFTs prior to surgery. /[id number]/MODL
[2018-02-08] MEDS: ERTAPENEM 1 GM in NS 100 ML IV SCH (20:40)
[2018-02-09 04:25] LABS: PLATELET COUNT 146 10^3/uL (150-400)
[2018-02-09 04:32] LABS: INR 1.2 (0.83-1.16); PROTIME(PATIENT) 15.4 SEC (12.0-15.0)
[2018-02-09] MEDS: LEVOTHYROXINE 75 MCG TAB PO SCH (06:03)
[2018-02-09] MEDS: NS 1,000 ML IV SCH (06:05)
--- NOTE | 2018-02-09 09:09 | HOSPPROG ---
Hospitalist Progress Note Assessment/Plan: # acute pancreatitis - d/t gallstones vs etOH - cont conservative management - cholecystectomy with IOC today by Dr Bhatti who was personally requested by patient and his # elevated LFTs - improved today - MRCP without stone # etOH - no s/s w/d yet # vol overload - may need more lasix post-op # a-fib - rate controlled - holding eliquis - cont dilt # htn - controlled # hypothyroid - synthroid Subjective: abd pain better overall - occasional twinges of pain in epigastrum Objective: Vital Signs Temp Pulse Resp BP Pulse Ox 36.9 C 102 H 18 131/83 H 90 L 02/09/18 08:00 02/09/18 08:00 02/09/18 08:00 02/09/18 08:00 02/09/18 08:00 Laboratory Results 02/09/18 03:31 02/09/18 03:31 02/08/18 02/09/18 02/10/18 05:59 05:59 05:59 Intake Total 5400 2100 Output Total 1575 2235 Balance 3825 -135 PT 15.4 SEC (12.0-15.0) H 02/09/18 03:31 INR 1.20 (0.83-1.16) H 02/09/18 03:31 high risk with planned surgery today - Physical Exam Constitutional: no apparent distress, appears nourished Cardiovascular: no murmur, rub, or gallop, irregularly irregular Respiratory: no respiratory distress, no rales or rhonchi, clear to auscultation Gastrointestinal: soft, non-tender abdomen, no palpable masses, No guarding, No rebound, No distension ICD10 Worksheet Patient Problems: Problems Problem Status Onset Atrial flutter Active Acute pancreatitis Acute
[2018-02-09] MEDS: PANTOPRAZOLE SODIUM 40 MG VIAL IVP SCH (09:20)
[2018-02-09] MEDS: DILTIAZEM CD 180 MG CAP PO SCH (09:20)
[2018-02-09] MEDS: ERTAPENEM 1 GM in NS 100 ML IV SCH (09:20)
[2018-02-09] MEDS: ALLOPURINOL 300 MG TAB PO SCH (09:20)
[2018-02-09] MEDS ORDERED: POTASSIUM Cl (KCl) 20 MEQ in 1/2 NS 1,000 ML IV SCH (10:00)
[2018-02-09] MEDS ORDERED: BUPIVACAINE 0.5% 30 ML SDV ONE (12:24)
[2018-02-09] MEDS ORDERED: IOPAMIDOL (ISOVUE-M 300) 15 ML VIAL ONE (12:26)
--- NOTE | 2018-02-09 12:42 | PDANEPAE ---
ANE History of Present Illness Lap. Cholecystectomy with IOCG ANE Past Medical History - Cardiovascular History Hx Arrhythmias: Yes - Pulmonary History Hx Oxygen in Use at Home: Yes O2 in Use at Home (L/minute): pt does not know Hx Sleep Apnea: Yes Sleep Apnea Screening Result - Last Documented: Positive - Endocrine History Hx Diabetes: No - Chronic Pain History Chronic Pain: No ANE Review of Systems Review of Systems: - Exercise capacity METS (RN): 3 METS - Systems Cardiac: Reports: irregular heart rate Respiratory: Reports: other (Sleep apnea) ANE Patient History - Allergies Allergies/Adverse Reactions: No Known Allergies Allergy (Verified 05/30/17 05:18) - Home Medications Home Medications: Allopurinol [Allopurinol 300 MG (RX)] 300 mg PO DAILY 10/12/11 [Last Taken 02/06] Apixaban [Eliquis] 5 mg PO BID 05/27/17 [Last Taken 02/06/18] Diltiazem HCl [Cartia XT 180mg] 180 mg PO DAILY 05/30/17 [Last Taken 02/06/18] Fluticasone Nasal [Flonase Nasal [place] (RX)] 1 sprays NASAL DAILY PRN 02/06/18 [ Last Taken Unknown] Levothyroxine [Synthroid 75 mcg (*)] 75 mcg PO DAILY06 02/06/18 [Last Taken ] Naproxen Sodium [Aleve 220 MG (*)] 220 mg PO BID PRN 02/06/18 [Last Taken 1 Week Ago ~01/30/18] - NPO status NPO Status: no food or drink >8 hours NPO Since - Liquids (Date): 02/08/18 NPO Since - Liquids (Time): 17:00 NPO Since - Solids (Date): 02/05/18 NPO Since - Solids (Time): 12:00 - Anes Hx Anes Hx: no prior problems (2-3/d) - Smoking Hx Smoking Status: Former smoker - Alcohol Use Alcohol Use: Other (2-3 drinks/day) - Family Anes Hx Family Anes Hx: none ANE Labs/Vital Signs - Labs Result Diagrams: 02/09/18 03:31 02/09/18 03:31 - Vital Signs Blood Pressure: 127/77 Heart Rate: 63 Respiratory Rate: 16 O2 Sat (%): 93 Height: 190.5 cm Weight: 118.1 kg ANE Physical Exam - Airway Neck exam: decreased ROM Mallampati Score: Class 1 Mouth exam: normal dental/mouth exam - Pulmonary Pulmonary: no respiratory distress, no rales or rhonchi - Cardiovascular Cardiovascular: irregularly irregular - ASA Status ASA Status: III ANE Anesthesia Plan Anesthesia Plan: general endotracheal anesthesia
[2018-02-09] MEDS ORDERED: MIDAZOLAM 2 MG/2 ML VIAL IVP ONE (12:54)
[2018-02-09] MEDS ORDERED: MIDAZOLAM 2 MG/2 ML VIAL ONE (12:58)
[2018-02-09] MEDS ORDERED: PROPOFOL/EMULSION 500 MG/50 ML BOTTLE IV ONE (13:05)
[2018-02-09] MEDS ORDERED: fentaNYL 250 MCG/5 ML INJ ONE (13:05)
[2018-02-09] MEDS ORDERED: ONDANSETRON 4 MG/2 ML VIAL ONE (13:06)
[2018-02-09] MEDS ORDERED: GLYCOPYRROLATE 0.2 MG/1 ML VIAL ONE (13:06)
[2018-02-09] MEDS ORDERED: ROCURONIUM 50 MG/5 ML VIAL ONE ×2 (13:06→14:11)
[2018-02-09] MEDS ORDERED: DEXAMETHASONE 4 MG/ML VIAL ONE (13:06)
[2018-02-09] MEDS ORDERED: PROPOFOL 200 MG/20 ML VIAL ONE (13:31)
[2018-02-09] MEDS ORDERED: SUGAMMADEX SODIUM 200 MG/2 ML VIAL IVP ONE (14:35)
--- NOTE | 2018-02-09 14:53 | POSTOPPROG ---
Post Op Note Date of Operation: 02/09/18 Surgeon: Shankar Bhatti Anesthesiologist: ROB Anesthesia: GET(General Endotracheal) Pre-op Diagnosis: GALLSTONE PANCREATITIS Post-op Diagnosis: SAME Indication: JAUNDICE Procedure: LAP MENA WITH GRAMS Findings: INFECTED GALLBLADDER/ GRAMS NEGATIVE BUT MARGINAL VIEW Inf/Abcess present in the surg proc area at time of surgery?: Yes Depth: Organ Space EBL: Minimal Complications: 0 Specimen(s): GALLBLADDER AND CULTURE
[2018-02-09] MEDS ORDERED: DIAZEPAM 5 MG/ML 1 ML SYR IVP PRN (14:54)
[2018-02-09] MEDS ORDERED: NALOXONE HCL 0.4 MG/ML INJ IVP PRN (14:54)
[2018-02-09] MEDS ORDERED: fentaNYL 100 MCG/2 ML INJ IVP PRN (14:54)
[2018-02-09] MEDS ORDERED: HYDROmorphONE/DILAUDID 2 MG/ML INJ IVP PRN (14:54)
[2018-02-09] MEDS ORDERED: ONDANSETRON 4 MG/2 ML VIAL IVP PRN ×2 (14:54→14:57)
[2018-02-09] MEDS: D5W 1/2 NS W/ 20 KCl/L 1,000 ML IV SCH (16:08)
[2018-02-09] MEDS: OXYCODONE/APAP 5/325 TAB PO PRN ×3 (16:19→21:22)
[2018-02-10 03:46] LABS: PLATELET COUNT 159 10^3/uL (150-400)
[2018-02-10] MEDS: D5W 1/2 NS W/ 20 KCl/L 1,000 ML IV SCH (04:59)
[2018-02-10] MEDS: LEVOTHYROXINE 75 MCG TAB PO SCH (06:25)
[2018-02-10] MEDS: OXYCODONE/APAP 5/325 TAB PO PRN ×2 (06:40→15:07)
[2018-02-10] MEDS: ERTAPENEM 1 GM in NS 100 ML IV SCH (08:02)
[2018-02-10] MEDS: PANTOPRAZOLE SODIUM 40 MG VIAL IVP SCH (08:02)
[2018-02-10] MEDS: DILTIAZEM CD 180 MG CAP PO SCH (08:02)
[2018-02-10] MEDS: ALLOPURINOL 300 MG TAB PO SCH (08:02)
--- NOTE | 2018-02-10 09:30 | SOAPPROG ---
SOAP Progress Note Assessment/Plan: Assessment: 77 MALE WITH GALLSTONE PANCREATITIS LIPASE DOWN LFTS UP MRCP NEG FOR STONES AFEBRILE/ PAIN IMPROVED RISKS AND OPTIONS FULLY DISCUSSED Plan:LAP MENA WITH GRAMS IN THE AM 02/08/18 17:06 02/10/18 09:29 FEELS MUCH BETTER TODAY WITH MINIMAL INCISIONAL DISCOMFORT AFEBRILE/NONICTERIC/LFTS RETURNING TO NORMAL/TOLERATING A DIET HOME SOON ON ANTIBIOTICS Objective: Vital Signs Temp Pulse Resp BP Pulse Ox 36.7 C 71 16 129/84 H 96 02/10/18 07:14 02/10/18 07:14 02/10/18 07:14 02/10/18 07:14 02/10/18 07:14 Microbiology 02/09/18 14:23 Gram Stain - Final Gallbladder - Eswab Laboratory Results 02/10/18 03:18 02/10/18 03:18 02/09/18 02/10/18 02/11/18 05:59 05:59 05:59 Intake Total 2100 3643 Output Total 2235 945 Balance -135 2698 PT 15.4 SEC (12.0-15.0) H 02/09/18 03:31 INR 1.20 (0.83-1.16) H 02/09/18 03:31 ICD10 Worksheet Patient Problems: Problems Problem Status Onset Acute pancreatitis Acute Atrial flutter Active
[2018-02-10 11:42] VITALS: BP 125/73
--- NOTE | 2018-02-10 12:51 | GOP ---
DATE OF OPERATION: 02/09/2018 SURGEON: Shankar Bhatti MD ANESTHESIA: Snehal Stinson MD. PREOPERATIVE DIAGNOSIS: Gallstone pancreatitis. POSTOPERATIVE DIAGNOSIS: Gallstone pancreatitis. PROCEDURE PERFORMED: Laparoscopic cholecystectomy with intraoperative cholangiograms. FINDINGS: The patient was found to have infected gallbladder, which was markedly inflamed. Cholangi ogram was negative, although the pictures were marginal because of a probable kink in the cholangiogr am catheter. DESCRIPTION OF PROCEDURE: The patient was taken to the operating room where he received a satisfacto ry general endotracheal anesthesia by Dr. Stinson. He was placed in a supine position, prepped and dr aped in the usual sterile fashion. He was prepped and draped in the usual sterile fashion, and a per iumbilical incision was made. A Veress needle inserted. Pneumoperitoneum was established. Trocar w as introduced. Laparoscope introduced. Good visualization was obtained. Three other trocars were p laced in the upper abdomen under direct vision. The gallbladder was elevated up, adhesions were free d up, exposing the entire length of the gallbladder, which was quite inflamed and thickened. Cystic triangle was carefully dissected free. The cystic duct and cystic artery were isolated. Cystic katharine ry was multiply hemoclipped and divided. The cystic duct was hemoclipped proximally. A cholangiogra m catheter was brought in through a separate stab incision. An incision was made in the cystic duct, and the catheter was introduced. It was held in place with a hemoclip. Cholangiography was then pe rformed. There was a fair amount of extravasation, obscuring the picture, but there was a faint flow in the common duct with flow into the duodenum. Catheter was removed. The cystic duct was multiply hemoclipped and divided. The peritoneum around the gallbladder was incised, the gallbladder was dis sected free from the bed of the hepatic fossa, and extracted through the upper midline port site. Wo und was copiously irrigated and hemostasis was assured. Trocars were removed under direct vision. T rocar sites were closed with 0 Vicryl for the fascia and 4-0 Monocryl subcuticular stitch for the ski n. All layers infiltrated with 0.5% Marcaine. Blood loss was less than 100 cc. No complications. There was no assistant produce manager. /[id number]/MODL
--- NOTE | 2018-02-10 13:59 | POSTANESTH ---
Post Anesthetic Evaluation Cardiovascular Status: Normal, Stable Respiratory Status: Normal, Stable Level of Consciousness/Mental Status: Can Participate in Eval Pain Control: Adequate, Prn Tx Ordered Nausea/Vomiting Control: Adequate, Prn Tx Ordered (Going home. Doing well) Complications Possibly Related to Anesthesia: None Noted
--- NOTE | 2018-02-10 14:26 | GDS ---
ALL DIAGNOSES: 1. Acute pancreatitis. 2. Acute cholecystitis status post cholecystectomy. 3. Alcohol use with no signs or symptoms of withdrawal. 4. Volume overload. 5. Rate controlled atrial fibrillation. 6. Hypertension. 7. Hypothyroid. HOSPITAL COURSE: This is a 77-year-old man who presented with abdominal pain. He was found to have acute pancreatitis with lipase in the 6000s. Treated conservatively with IV fluids and bowel rest. He had persistently elevated LFTs which triggered an MRCP which was negative for choledocholithiasis. He had a subsequent cholecystectomy which showed acutely inflamed and purulent gallbladder. Likely etiology of his pancreatitis was gallstones. He also does drink alcohol daily, I warned him t hat this certainly may trigger a recurrence. He will get an additional 5 days of Augmentin for antib iotics post cholecystectomy given the appearance of his gallbladder. He has atrial fibrillation, mauri l resume his Eliquis tomorrow. Prior to discharge, he is able to eat and tolerate foods without any problem. He had no additional a bdominal pain, nausea, or vomiting. FOLLOWUP: Dr. Bhatti within a week for postop followup. BILLING: I spent more than 30 minutes on the day of discharge coordinating care. /[id number]/MODL
--- NOTE | 2018-02-10 18:24 | GCON ---
DATE OF CONSULTATION: 02/08/2018 Patient is a 77-year-old male, well known to me, who has a gallstone pancreatitis. Ultrasound reveal s multiple stones. His common duct was not significantly dilated. He was seen by GI. A recent MRCP did not reveal much dilatation or common duct stones. His pancreatitis is resolving. His lipase is coming down to normal. His LFTs are still elevated, but his pain and overall comfort level have imp roved. He is presently afebrile. ALLERGIES: None. MEDICATIONS: Include Eliquis, Cartia, Flonase, allopurinol, Synthroid, and naproxen. PAST MEDICAL HISTORY: Includes hypertension, pulmonary emboli, gout, hypothyroidism, atrial fibrilla tion. He has had no major surgeries. FAMILY HISTORY: Noncontributory. SOCIAL HISTORY: Reveals he is an ex-smoker. He does have a couple of drinks per day. REVIEW OF SYSTEMS: Noncontributory on a full 10-point review. PHYSICAL EXAMINATION: GENERAL: An alert, comfortable, 77-year-old male in no acute distress. He is afebrile. HEAD AND NECK: Reveals slight icterus. There is no adenopathy. No oral lesions. NECK: Supple without thyromegaly or bruits. CHEST: Clear. CARDIAC: Regular rhythm. ABDOMEN: Soft. He is tender in the right upper quadrant with no masses. He is slightly distended. There are no her nias. GENITALIA: Normal. EXTREMITIES: Reveal full range of motion. Full pulses. NEUROLOGIC: Ph ysiologic and symmetric. PSYCH: Reveals him to be alert, cooperative, and oriented. IMPRESSION: Gallstone pancreatitis. I would recommend laparoscopic cholecystectomy when his Eliquis is worn off in 24 hours. Risks and o ptions have been fully discussed and he wishes to proceed. /[id number]/MODL
--- NOTE | 2018-02-11 08:41 | ASDISCHSUM ---
Discharge Information Plan Status:Home with No Needs Medically Cleared to Leave:02/11/2018 Discharge Date:02/10/2018 03:20 PM CM D/C Disposition:Home, Routine, Self-Care ADT D/C Disposition:Home, Routine, Self-Care Projected Discharge Date:02/10/2018 03:20 PM Transportation at D/C: Discharge Delay Reason: Follow-Up Date:02/10/2018 03:20 PM Discharge Slot: Final Diagnosis: Placement Information Patient Contact Information Contact Name:CAMILA Relationship: Address:[address] City:[place] Alternate Phone: State/Zip Code:[place] [address] Email: Financial Information Financial Class:BCOP Primary Plan Desc:[employer] IGLESIAS PPO Primary Plan Number:[id number] Secondary Plan Desc:MEDICARE 2NDARY PFS USE Secondary Plan Number:[id number] Assessment Information LACE LACE Length of stay for Answers: 4-6 days current admission Acuity / Level of Answers: Yes Care: Did the patient have an inpatient admission? Comorbidities - select Answers: Other Notes: HTN; AFib; Hypothyroid all that apply # of Emergency department Answers: 1-2 visits in the last 6 months Score: 9 Date Signed: 02/11/2018 08:39 AM Electronically Signed By:Ilsa Stinson RN [facility] Initial CM Assessment Living Arrangements What is your living Answers: With Spouse arrangement? Who do you live with? Type Of Residence What kind of residence do Answers: House you live in? Discharge Plan Comments Coordination Status Comments Notes: Pts case discussed in tx rounds. Pt is a 77 y/o man admitted for acute pancreatitis. Pt drinks several alcoholic beverages a night. Dr. Dumont plans on speaking to pt about her substance abuse program. CM met w/ pt and to provide aloch resources and educational material. CM was unable to complete CAGE because pt reportedly went through this 5 times already. Pts scuffed and stated that this is ridiculous. It appears that pt and are resistant to the idea that pts alcohol consumption is problematic. Pt will most likely d/c independent when medically stable. No therapies ordered at this time. CM available for changes. Plan: Independent Date Signed: 02/07/2018 11:36 AM Electronically Signed By:KENYON Rollins [facility] Progress Note CM Note CM Note Notes: 02/08/2018 Case Management Note Discussed pt during rounds this morning. Mil [phone] present in room. Pt had MRI of abdomen today, may need gallbladder removed. D/C likely several days away. Case Management d/c poc: anticipating independent with follow up as directed. Case Management to follow. Date Signed: 02/08/2018 12:02 PM Electronically Signed By:Ilsa Stinson RN Case Management Discharge Plan Note Case Management Discharge Discharge Order Complete? Answers: Yes Patient to Obtain Answers: via Family Medications Discharge Comments Notes: Pt discharged home with on 02/10 with follow up as directed. Date Signed: 02/11/2018 08:40 AM Electronically Signed By:Ilsa Stinson, RN Intervention Information
== END 2018-02-10 15:20 | disposition home or self-care (01) | DRG 418 ==
LOC: EDUNIT# → F2W 16:50
PROVIDERS: ADMIT Internal Medicine; ATTEND Internal Medicine
DX: K85.10 Biliary acute pancreatitis without necrosis or infection (principal); K80.12 Calculus of gallbladder with acute and chronic cholecystitis without obstruction; I48.91 Unspecified atrial fibrillation; I10 Essential (primary) hypertension; M10.9 Gout, unspecified; E03.9 Hypothyroidism, unspecified; Z87.891 Personal history of nicotine dependence; Z79.01 Long term (current) use of anticoagulants; Z23 Encounter for immunization
CPT/HCPCS: 84484-PO; 96374; 97161-GP; 97165-GO; A9585; G0008; G0378; G8978-GP-CH; G8979-GP-CH; G8980-GP-CH; G8987-GO-CI; G8988-GO-CI; G8989-GO-CI; J1100; J1170; J1335; J1940; J2250; J2405; J2704; J3010; J3430; J3480; Q9967

== ENCOUNTER 2018-05-23 18:10 | Emergency (ER) | payer OTHER ==
--- NOTE | 2018-05-23 19:03 | EDPHY ---
H & P Time Seen by Provider: 05/23/18 18:50 HPI/ROS: CHIEF COMPLAINT: Spit up blood, nausea HISTORY OF PRESENT ILLNESS: Patient is a 78-year-old male on Eliquis for atrial fibrillation with diagnosis of pancreatitis in January who presents emergency department with nausea and spitting up a small amount of blood. Patient states this evening he felt mildly nauseated. He felt as though some fluid collected in his throat. When he spit up it was bloody. It was a small amount. It seems to have stopped. He has had no cough or shortness of breath.( the triage note states the patient cough blood, but the patient confirms he feels this was spit up and not a cough.) Patient has had no abdominal pain. No lightheadedness or dizziness. No other bleeding episodes. No bruising. REVIEW OF SYSTEMS: 10 systems were reveiwed and are negative with the exception of the elements mentioned in the history of present illness. Past Medical/Surgical History: Includes pancreatitis, gout, hypothyroidism, atrial fibrillation, hypertension Past surgical history: Cholecystectomy Social history: The patient does not smoke Smoking Status: Former smoker Physical Exam: 36.8, 154/70, 70, 18, 93 GENERAL: Well-appearing, in no acute distress, alert. HEENT: Eyes normal to inspection, normal pharynx, no signs of dehydration. NECK: Normal, supple. RESPIRATORY: Clear to auscultation bilaterally, no rales, rhonchi or wheezing. CVS: Regular rate and rhythm, no rubs, murmurs, or gallops. ABDOMEN: Soft, nontender, nondistended, no organomegaly. Benign BACK: Normal to inspection, no CVA tenderness. SKIN: Normal color, no rash, warm, dry. No pallor. EXTREMITIES: No pedal edema, no calf tenderness, no Homans sign or cords, no joint swelling. NEURO/PSYCH: Alert and oriented, normal mood and affect, normal motor sensory exam. No obvious cranial nerve deficit. Constitutional: Initial Vital Signs Temperature (C) 36.8 C 05/23/18 18: Heart Rate 70 05/23/18 18: Respiratory Rate 18 05/23/18 18: Blood Pressure 154/78 H 05/23/18 18: O2 Sat (%) 93 05/23/18 18: O2 Delivery Mode Room Air Allergies/Adverse Reactions: No Known Allergies Allergy (Verified 05/23/18 18:22) Home Medications: Medication Instructions Recorded Allopurinol [Allopurinol 300 MG 300 mg PO DAILY 10/12/11 (RX)] Apixaban [Eliquis] 5 mg PO BID 05/27/17 Diltiazem HCl [Cartia XT 180mg] 180 mg PO DAILY 05/30/17 Fluticasone Nasal [Flonase Nasal 1 sprays NASAL DAILY PRN 02/06/18 [place]] Levothyroxine [Synthroid 75 mcg 75 mcg PO DAILY06 02/06/18 (*)] Naproxen Sodium [Aleve 220 MG (*)] 220 mg PO BID PRN 02/06/18 Amoxicillin/Clavulanate Pot 875 mg PO BID #10 tab 02/10/18 [Augmentin 875 MG TAB (*)] oxyCODONE/APAP 5/325 [Percocet 1 - 2 tab PO Q4 PRN #20 tab 02/10/18 5/325 (*)] Medical Decision Making - Diagnostics Imaging Results: Imaging Impressions Chest X-Ray 05/23/18 19:06 Impression: Stable negative chest. ED Course/Re-evaluation: In the emergency department I discussed possible etiologies with the patient. I answered all his questions. IV was placed. Laboratory studies and chest x- ray were ordered. Patient white count was mildly elevated at 12. The rest the CBC was unremarkable. Chemistry panel was normal. Coags normal. Chest x-ray: No acute disease noted. I rechecked the patient. He was doing well. He had no complaints. Abdomen was soft, nontender and nondistended. Patient was given follow-up with Gastroenterology. He will take Pepcid twice daily for the next 10 days. He was given warnings prior to leaving. He will return with worsening symptoms. Differential Diagnosis: My differential includes but not limited to upper GI bleed, esophagitis, Eugenia -Duran tear, bronchitis, pneumonia, pulmonary embolus, coagulopathy - Data Points Laboratory Results: Laboratory Results 05/23/18 18:45 05/23/18 18:45 05/23/18 05/23/18 05/23/18 18:45 18:45 18:45 WBC 12.49 10^3/uL H 10^3/uL (3.80-9.50) RBC 4.75 10^6/uL 10^6/uL (4.40-6.38) Hgb 16.0 g/dL g/dL (13.7-17.5) Hct 46.4 % % (40.0-51.0) MCV 97.7 fL fL (81.5-99.8) MCH 33.7 pg pg (27.9-34.1) MCHC 34.5 g/dL g/dL (32.4-36.7) RDW 14.0 % % (11.5-15.2) Plt Count 215 10^3/uL 10^3/uL (150-400) MPV 10.3 fL fL (8.7-11.7) Neut % (Auto) 77.6 % H % (39.3-74.2) Lymph % (Auto) 14.6 % L % (15.0-45.0) [place] % (Auto) 7.1 % % (4.5-13.0) Eos % (Auto) 0.2 % L % (0.6-7.6) Baso % (Auto) 0.2 % L % (0.3-1.7) Nucleat RBC Rel Count 0.0 % % (0.0-0.2) Absolute Neuts (auto) 9.68 10^3/uL H 10^3/uL (1.70-6.50) Absolute Lymphs (auto) 1.82 10^3/uL 10^3/uL (1.00-3.00) Absolute Monos (auto) 0.89 10^3/uL H 10^3/uL (0.30-0.80) Absolute Eos (auto) 0.03 10^3/uL 10^3/uL (0.03-0.40) Absolute Basos (auto) 0.03 10^3/uL 10^3/uL (0.02-0.10) Absolute Nucleated RBC 0.00 10^3/uL 10^3/uL (0-0.01) Immature Gran % 0.3 % % (0.0-1.1) Immature Gran # 0.04 10^3/uL 10^3/uL (0.00-0.10) PT 14.4 SEC SEC (12.0-15.0) INR 1.10 (0.83-1.16) APTT 28.0 SEC SEC (23.0-38.0) Sodium 135 mEq/L mEq/L (135-145) Potassium 4.1 mEq/L mEq/L (3.5-5.2) Chloride 104 mEq/L mEq/L (97-110) Carbon Dioxide 26 mEq/l mEq/l (22-31) Anion Gap 5 mEq/L L mEq/L (6-14) BUN 20 mg/dL mg/dL (7-23) Creatinine 1.0 mg/dL mg/dL (0.7-1.3) Estimated GFR > 60 Glucose 106 mg/dL H mg/dL (70-100) Calcium 9.1 mg/dL mg/dL (8.5-10.4) Total Bilirubin 0.8 mg/dL mg/dL (0.1-1.4) Conjugated Bilirubin 0.3 mg/dL mg/dL (0.0-0.5) Unconjugated Bilirubin 0.5 mg/dL mg/dL (0.0-1.1) AST 14 IU/L L IU/L (17-59) ALT 24 IU/L IU/L (21-72) Alkaline Phosphatase 78 IU/L IU/L (38-126) Total Protein 6.6 g/dL g/dL (6.3-8.2) Albumin 3.7 g/dL g/dL (3.5-5.0) Lipase 38 IU/L IU/L (23-300) Medications Given: Discontinued Medications Sodium Chloride (Ns) 500 mls @ 0 mls/hr IV EDNOW ONE; Wide Open PRN Reason: Protocol Stop: 05/23/18 19:06 Last Admin: 05/23/18 19:10 Dose: 500 mls Departure - Departure Disposition: Home, Routine, Self-Care Clinical Impression: Nausea, Spitting up blood Condition: Fair Instructions: Acute Nausea and Vomiting (ED) Additional Instructions: You need close follow-up with your primary care physician to ensure that your symptoms resolved. You need further workup with evaluation by Gastroenterology. Take Pepcid twice daily for the next 10 days. Referrals: Anatoly Bunn MD [Primary Care Provider] - 2-3 days without fail Scarlett Guan MD [Medical Doctor] - 5-7 days, call for appt.
[2018-05-23] MEDS ORDERED: NS 500 ML IV ONE (19:05)
[2018-05-23 19:13] LABS: PLATELET COUNT 215 10^3/uL (150-400)
[2018-05-23 19:20] LABS: INR 1.1 (0.83-1.16); PROTIME(PATIENT) 14.4 SEC (12.0-15.0)
[2018-05-23 20:10] VITALS: BP 135/84
== END 2018-05-23 20:09 | disposition home or self-care (01) ==
DX: R04.2 Hemoptysis (principal); R11.0 Nausea; E86.9 Volume depletion, unspecified; I48.91 Unspecified atrial fibrillation; E03.9 Hypothyroidism, unspecified; Z79.01 Long term (current) use of anticoagulants; Z90.49 Acquired absence of other specified parts of digestive tract

== ENCOUNTER 2018-09-06 11:18 | Day surgery (SDC) | payer OTHER ==
[2018-09-06] MEDS ORDERED: FAMOTIDINE 20 MG TAB PO ONE (11:28)
[2018-09-06] MEDS ORDERED: diphenhydrAMINE 25 MG CAP PO ONE ×2 (11:28→12:15)
[2018-09-06] MEDS ORDERED: ASPIRIN EC 325 MG TAB PO ONE ×2 (11:28→12:15)
[2018-09-06] MEDS ORDERED: NS 1,000 ML IV ONE (11:28)
[2018-09-06] MEDS ORDERED: DIAZEPAM 5 MG TAB PO ONE (11:28)
[2018-09-06] MEDS ORDERED: LIDOCAINE 1% 300 MG/30 ML SDV ONE (11:54)
[2018-09-06] MEDS ORDERED: fentaNYL 100 MCG/2 ML INJ ONE (11:54)
[2018-09-06] MEDS ORDERED: IOPAMIDOL (ISOVUE-370) 150 ML BTL IV ONE (11:55)
[2018-09-06] MEDS ORDERED: MIDAZOLAM 2 MG/2 ML VIAL ONE (11:55)
[2018-09-06 11:58] LABS: PLATELET COUNT 275 10^3/uL (150-400)
[2018-09-06 12:12] LABS: INR 1.02 (0.83-1.16)
[2018-09-06] MEDS ORDERED: FAMOTIDINE 20 MG TAB ONE (12:15)
[2018-09-06] MEDS ORDERED: DIAZEPAM 5 MG TAB ONE (12:17)
--- NOTE | 2018-09-06 12:24 | PDHPUP ---
History & Physical Update H&P update statement: This history and physical update is based on an assessment of the patient which was completed after admission or registration (within 24 hours), but prior to the surgery/procedure. H&P update: H&P reviewed & patient examined, no change in patient's condition since H&P completed
--- NOTE | 2018-09-06 12:25 | PDPROPOC ---
Sedation Plan of Care Sedation Plan of Care: vital signs stable, mental status noted, patient educated of risks, benefits, alternatives, patient can tolerate sedation ASA Classification: ASA 2 Planned drugs: fentanyl, midazolam Mallampati Score: Class 2 Mallampati Reference Image: Patient passed 3-3-2 rule?: Yes
--- NOTE | 2018-09-06 13:27 | CPIP ---
[f rep st] INVASIVE CARDIAC PROCEDURE DATE OF PROCEDURE: 09/06/2018 PROCEDURES: 1. Coronary angiography. 2. Left ventriculography. INDICATION: Symptoms concerning for an anginal equivalent. ACCESS: Patient was prepped and draped in sterile fashion. 1% lidocaine was used to anesthetize the right inguinal region. A 6-Spanish introducer sheath was placed selectively in the right common femo ral artery via modified Seldinger technique. CORONARY ANGIOGRAPHY: A 6-Spanish JL4 was advanced to left main coronary artery, and images obtained. The left main coronary artery bifurcated into an LAD and circumflex coronary arteries. The left ma in coronary artery appeared normal. The left anterior descending coronary artery gave rise to a sing le very large diagonal branch. The left anterior descending coronary artery had mild luminal irregul arities throughout. There was no stenosis greater than 10%. The first diagonal artery was a large v essel. The first diagonal artery had a proximal 10-to 15% stenosis present. The circumflex coronary artery was a relatively small vessel. The circumflex coronary artery had mild luminal irregularitie s throughout. There was no stenosis greater than 10%. A 6-Spanish JR4 was advanced to the right juan nary artery and images obtained. The right coronary artery was large. The right coronary artery is dominant. The right coronary artery had a single discrete 20% stenosis in the midvessel. LEFT VENTRICULOGRAPHY: A 6-Spanish pigtail catheter was advanced in the left ventricle and images obt ained. Left ventricle is normal in size and normal systolic function with estimated ejection fractio n of 60%. COMPLICATIONS: None. CONCLUSIONS: 1. Mild coronary artery disease without flow limitation. 2. Normal left ventricular size and systolic function. 3. Plan is for medical management. /[id number]/MODL
[2018-09-06] MEDS ORDERED: NITROGLYCERIN 0.4 MG BTL SL PRN (13:35)
[2018-09-06] MEDS ORDERED: ATROPINE SULFATE 1 MG/10 ML SYR IVP PRN (13:35)
[2018-09-06] MEDS ORDERED: ONDANSETRON 4 MG/2 ML VIAL IVP PRN (13:35)
[2018-09-06 15:52] VITALS: BP 133/77
--- NOTE | 2018-09-07 15:21 | CPEKG ---
Test Reason : OPEN Blood Pressure : / mmHG Vent. Rate : 059 BPM Atrial Rate : 069 BPM P-R Int : 210 ms QRS Dur : 156 ms QT Int : 470 ms P-R-T Axes : 016 -53 005 degrees QTc Int : 466 ms Sinus rhythm Ventricular premature complex RBBB and LAFB Confirmed by Gracie Cazares ([id number]) on 09/07/2018 3:21:11 PM Referred By: Nito Aguillon Confirmed By:Gracie Cazares
== END 2018-09-06 15:53 | disposition home or self-care (01) ==
LOC: FCATH 11:18
PROVIDERS: ATTEND Internal Medicine Cardiovascular Disease
PROC: B2151ZZ Fluoroscopy of Left Heart using Low Osmolar Contrast (ICD-10-PCS; principal; 2018-09-06)
PROC: 4A023N7 Measurement of Cardiac Sampling and Pressure, Left Heart, Percutaneous Approach (ICD-10-PCS; principal; 2018-09-06)
PROC: B2111ZZ Fluoroscopy of Multiple Coronary Arteries using Low Osmolar Contrast (ICD-10-PCS; principal; 2018-09-06)
DX: I49.9 Cardiac arrhythmia, unspecified (principal); R42 Dizziness and giddiness; G47.33 Obstructive sleep apnea (adult) (pediatric)
CPT/HCPCS: C1760; J1644; J2250; J3010; Q9967

== ENCOUNTER → 2018-09-16 | Outpatient (CLI) | payer OTHER | LOC: FIMAGING 15:30 | PROVIDERS: ATTEND Internal Medicine | DX: E87.1 Hypo-osmolality and hyponatremia (principal) ==

== ENCOUNTER 2018-09-20 16:11 | Emergency (ER) | payer OTHER ==
[2018-09-20 17:29] LABS: PLATELET COUNT 247 10^3/uL (150-400)
[2018-09-20 17:50] LABS: INR 1.22 (0.83-1.16); PROTIME(PATIENT) 14.9 SEC (12.0-15.0)
--- NOTE | 2018-09-20 17:53 | EDPHY ---
H & P Stated Complaint: Sent by PC for leg swelling, concern about blood pooling post angiogram - Personal History Tetanus Vaccine Date: UNKNOWN - Medical/Surgical History Hx Asthma: No Hx Chronic Respiratory Disease: No Hx Diabetes: No Hx Cardiac Disease: Yes Hx Renal Disease: No Hx Cirrhosis: No Hx Alcoholism: No Hx HIV/AIDS: No Hx Splenectomy or Spleen Trauma: No Other PMH: afib, gout, hypothyroid, HTN - Social History Smoking Status: Former smoker Time Seen by Provider: 09/20/18 16:59 HPI/ROS: Chief complaint: Right leg swelling and discomfort History of present illness: This is a 78-year-old male, currently on Eliquis, who presents to the emergency department at the request of his primary care doctor, Dr. Bunn, for evaluation of right leg swelling and discomfort. Patient reports he noticed the onset of swelling over the last day. The right leg is significantly swollen compared to the left and is uncomfortable. He reports 3 weeks ago he underwent a cardiac angiogram with insertion in the right femoral region. He had been doing well since then until the last day or so when the swelling began. Patient denies associated signs or symptoms including no numbness or abnormal coolness in the leg. No involvement of the left leg. No fevers, no chest pain, shortness of breath or cough. Review of systems: A 10 point review of systems was obtained and other than described above was negative (Forrest Morales) - Physical Exam Exam: General Appearance: Alert, nontoxic, easily conversant. Eyes: Pupils equal and round no pallor or injection. ENT, Mouth: Mucous membranes moist. Respiratory: There are no retractions, lungs are clear to auscultation. Cardiovascular: Regular rate and rhythm. DP pulse 2 +on the right, PT pulse 1 +on the right. Gastrointestinal: Abdomen is soft and non tender, no masses, bowel sounds normal. Neurological: Alert and oriented x4. Skin: Warm and dry, no rashes. Musculoskeletal: Significant edema to the right leg as compared to the left. Slight increase in warmth. Psychiatric: Patient is oriented X 3, there is no agitation. (Forrest Morales) Constitutional: Initial Vital Signs Temperature (C) 36.7 C 09/20/18 16:14 Heart Rate 55 L 09/20/18 16:14 Respiratory Rate 16 09/20/18 16:14 Blood Pressure 125/68 H 09/20/18 16:14 O2 Sat (%) 93 09/20/18 16:14 O2 Delivery Mode Room Air Allergies/Adverse Reactions: No Known Allergies Allergy (Verified 09/04/18 17:18) Home Medications: Medication Instructions Recorded Allopurinol [Allopurinol 300 MG 300 mg PO DAILY 10/12/11 (RX)] Apixaban [Eliquis] 5 mg PO BID 05/27/17 Fluticasone Nasal [Flonase Nasal 1 sprays NASAL DAILY PRN 02/06/18 [place]] Levothyroxine [Synthroid 75 mcg 75 mcg PO DAILY06 02/06/18 (*)] Atorvastatin Calcium [Lipitor 40 40 mg PO DAILY 09/04/18 mg (*)] Sildenafil Citrate [Viagra 50 MG 50 mg PO AD PRN 09/04/18 (*)] Medical Decision Making - Diagnostics Imaging: Discussed imaging studies w/ on call pharmacy technician Radiologist - Diagnostics Imaging Results: Imaging Impressions Extremity Venous Study 09/20/18 17:14 Impression: 1. Dominant hematoma in the right groin that sits directly on top of the common femoral vein causing compression. 2. Very slow flow involving the venous system of the right lower extremity with normal compression but significantly diminished color-flow Doppler measurements. 3. Fibrous band within the greater saphenous vein compatible with previously recannulized thrombus. 4. No evidence of pseudoaneurysm in the right groin with hematoma present in the right groin and a vessel coursing through this hematoma. Findings discussed with ALEXA Mireles at 19:30 hour, 09/20/2018. Pseudoaneurysm Repair 09/20/18 17:14 Impression: 1. Dominant hematoma in the right groin that sits directly on top of the common femoral vein causing compression. 2. Very slow flow involving the venous system of the right lower extremity with normal compression but significantly diminished color-flow Doppler measurements. 3. Fibrous band within the greater saphenous vein compatible with previously recannulized thrombus. 4. No evidence of pseudoaneurysm in the right groin with hematoma present in the right groin and a vessel coursing through this hematoma. Findings discussed with ALEXA Mireles at 19:30 hour, 09/20/2018. ED Course/Re-evaluation: Patient is discussed with my secondary supervising physician Dr. Anatoly Serrano. Patient presents to the emergency department for swelling of the right leg. The leg does appear neurovascularly intact. Ultrasounds are obtained which does show a hematoma compressing the femoral vein. Blood studies obtained, mild to moderate hyponatremia 127. I have consulted with General surgery, Dr. Michael Simmons. He has seen the patient. He believes this could be treated on an outpatient basis. He recommends patient discontinue the use of Eliquis at this time and follow up with his own surgeon, Dr. Bhatti or Dr. Simmons on Sunday for for re-evaluation. I have also consulted with the hospitalist Dr. Jon Devlin who does not feel the sodium itself needs further treatment inpatient. I have consulted with the patient's primary care group, Dr. Harley Banda who is agreement with plan to send patient home to follow up with his primary care doctor for recheck of his sodium level and his surgeon for recheck of his leg. Patient is comfortable with the plan. Return precautions are given. (Forrest Morales) I did not see this patient while he was in the emergency department. However his care was discussed with the PA while the patient was in the department. I agree with treatment plan and management (Anatoly Serrano) Differential Diagnosis: Included but not limited to superficial thrombophlebitis, DVT, proximal lymphatic or blood vessel obstruction (Forrest Morales) - Data Points Laboratory Results: Laboratory Results 09/20/18 17:15 09/20/18 17:15 09/20/18 09/20/18 09/20/18 17:15 17:15 17:15 WBC 9.05 10^3/uL 10^3/uL (3.80-9.50) RBC 4.39 10^6/uL L 10^6/uL (4.40-6.38) Hgb 14.9 g/dL g/dL (13.7-17.5) Hct 43.7 % % (40.0-51.0) MCV 99.5 fL fL (81.5-99.8) MCH 33.9 pg pg (27.9-34.1) MCHC 34.1 g/dL g/dL (32.4-36.7) RDW 12.4 % % (11.5-15.2) Plt Count 247 10^3/uL 10^3/uL (150-400) MPV 9.4 fL fL (8.7-11.7) Neut % (Auto) 71.9 % % (39.3-74.2) Lymph % (Auto) 19.2 % % (15.0-45.0) [place] % (Auto) 7.4 % % (4.5-13.0) Eos % (Auto) 0.7 % % (0.6-7.6) Baso % (Auto) 0.4 % % (0.3-1.7) Nucleat RBC Rel Count 0.0 % % (0.0-0.2) Absolute Neuts (auto) 6.50 10^3/uL 10^3/uL (1.70-6.50) Absolute Lymphs (auto) 1.74 10^3/uL 10^3/uL (1.00-3.00) Absolute Monos (auto) 0.67 10^3/uL 10^3/uL (0.30-0.80) Absolute Eos (auto) 0.06 10^3/uL 10^3/uL (0.03-0.40) Absolute Basos (auto) 0.04 10^3/uL 10^3/uL (0.02-0.10) Absolute Nucleated RBC 0.00 10^3/uL 10^3/uL (0-0.01) Immature Gran % 0.4 % % (0.0-1.1) Immature Gran # 0.04 10^3/uL 10^3/uL (0.00-0.10) PT 14.9 SEC SEC (12.0-15.0) INR 1.22 H (0.83-1.16) APTT 34.9 SEC SEC (23.0-38.0) Sodium 127 mEq/L L mEq/L (135-145) Potassium 4.2 mEq/L mEq/L (3.5-5.2) Chloride 93 mEq/L L mEq/L (97-110) Carbon Dioxide 27 mEq/l mEq/l (22-31) Anion Gap 7 mEq/L mEq/L (6-14) BUN 13 mg/dL mg/dL (7-23) Creatinine 1.0 mg/dL mg/dL (0.7-1.3) Estimated GFR > 60 Glucose 98 mg/dL mg/dL (70-100) Calcium 8.7 mg/dL mg/dL (8.5-10.4) Departure - Departure Disposition: Home, Routine, Self-Care Clinical Impression: Hyponatremia Leg hematoma Qualifiers: Encounter type: initial encounter Laterality: right Qualified Code(s): S80.11XA - Contusion of right lower leg, initial encounter Condition: Good Instructions: Hyponatremia (ED), Leg Edema (ED) Additional Instructions: Follow-up with your primary care doctor and your surgeon this Sunday for recheck Please stop your Eliquis for the time being until told to restart it by your surgeon or primary care doctor Your surgeon will need to evaluate if the hematoma in your leg needs to be drained Your primary care doctor needs to recheck your sodium level, in the emergency room it was 127 Please elevate the leg over the next few days as much as possible If symptoms worsen or new symptoms develop return to the emergency department for recheck Referrals: Anatoly Bunn MD [Primary Care Provider] - As per Instructions Shankar Bhatti MD [Medical Doctor] - As per Instructions
--- NOTE | 2018-09-20 20:16 | GHP ---
[f rep st] HISTORY AND PHYSICAL DATE OF ADMISSION: 09/20/2018 I was asked to see the patient by the emergency room physician in regard to right leg swelling. This pleasant 78-year-old male had a heart cath approximately 3 weeks ago, which did not show any les ions requiring intervention. He is on Eliquis because of atrial fibrillation. There is apparently a small asymptomatic stroke that he sustained in the distant past, was unaware of when. He also has v enous hypertension with classic brownish discoloration of the lower calves and other sequelae of veno us hypertension. After his heart cath 3 weeks ago, he was doing fine, but over the last 3 days, note d progressive right leg swelling even more than his usual leg swelling. On physical exam, now the ri ght leg is obviously more swollen than the left. There is no phlegmasia cerulea dolens or phlegmasia alba dolens. Full sensation, full motor. He is walking around fairly comfortably on this. An ultr asound and doppler study done through the emergency room shows a 5 x 3.7 x 1.7 hematoma adjacent to t he femoral vein, likely causing some compression. There is a question of some arterial flow in this hematoma, although the radiologist somehow it feels it is not an actual pseudoaneurysm. PHYSICAL EXAM: Leg is swollen, as mentioned above. The hematoma is not as easy to palpate as one wo amadod expect, but there is a firmness in the area of the femoral artery and vein consistent with an are a of hard hematoma likely compressing the femoral vein to some extent. ASSESSMENT: [id number] hematoma, right groin. I would not recommend trying to explore thi s indurated area on a patient on Eliquis. He took his Eliquis last night. He has had none today, so he is 24 hours off the Eliquis. It would be reasonable to operate on him 48 hours after the cessati on of Eliquis. I do not really see much reason to keep him in the hospital. He has not been elevati ng the leg, and I think that would help him a lot. I think there is little to be lost by allowing hi m to go home, keep the leg elevated above heart level at home, and then readdress this Sunday or . The patient is very familiar with Dr. Shankar Bhatti who has done multiple procedures in the past and would like to follow up with him. I suggested he contact Dr. Bhatti' office Sunday to discuss th e situation and see if they recommend surgery or not. I am not sure surgery will actually improve th e situation as the hematoma is not that large on palpation, likely will resolve, and certainly openin g the groin can result in wound complications, etc. The patient and his are both comfortable be ing discharged, and the hospitalist is giving an opinion as well. The patient does have a sodium of 127, but this does not seem like something that needs to be cared for in the hospital. /[id number]/MODL
[2018-09-20 20:25] VITALS: BP 124/82
== END 2018-09-20 20:28 | disposition home or self-care (01) ==
LOC: UNDOADMIN 19:41
DX: S80.11XA Contusion of right lower leg, initial encounter (principal); E87.1 Hypo-osmolality and hyponatremia; I10 Essential (primary) hypertension; X58.XXXA Exposure to other specified factors, initial encounter; Z79.01 Long term (current) use of anticoagulants

== ENCOUNTER 2018-09-21 08:16 | Observation (INO) | payer OTHER ==
--- NOTE | 2018-09-21 08:19 | EDPHY ---
H & P - Personal History Tetanus Vaccine Date: UNKNOWN - Medical/Surgical History Hx Asthma: No Hx Chronic Respiratory Disease: No Hx Diabetes: No Hx Cardiac Disease: Yes Hx Renal Disease: No Hx Cirrhosis: No Hx Alcoholism: No Hx HIV/AIDS: No Hx Splenectomy or Spleen Trauma: No Other PMH: afib, gout, hypothyroid, HTN - Social History Smoking Status: Former smoker Time Seen by Provider: 09/21/18 08:18 Constitutional: Initial Vital Signs Temperature (C) 36.4 C 09/21/18 08:21 Heart Rate 75 09/21/18 08:21 Respiratory Rate 16 09/21/18 08:21 Blood Pressure 117/73 09/21/18 08:21 O2 Sat (%) 93 09/21/18 08:21 O2 Delivery Mode Room Air Allergies/Adverse Reactions: No Known Allergies Allergy (Verified 09/04/18 17:18) Home Medications: Medication Instructions Recorded Apixaban [Eliquis] 5 mg PO BID 05/27/17 Medical Decision Making - Diagnostics Imaging: Discussed imaging studies w/ call taker Radiologist, I viewed and interpreted images myself - Diagnostics Imaging Results: Imaging Impressions Head CT 09/21/18 08:25 Impression: 1. No acute intracranial findings. 2. Diffuse cerebral atrophy with periventricular and subcortical low attenuation consistent with chronic microvascular ischemic gliosis. Findings discussed with Álvaro Ryder MD 09/21/2018 at 9:19. Procedures: Procedure: Laceration repair. I was requested by to perform wound closure I explained the indications, risks and benefits for both laceration repair and anesthetic administration. Verbal consent was obtained from the patient. The 3 cm laceration on the chin was anesthetized using 0.5% bupivicaine with epinephrine. After anesthetic administered the patient was observed for a period of time and had no apparent adverse effects. The wound was cleaned, prepped, draped in normal sterile fashion and explored to its base. No foreign body seen, no foreign bodies palpated. The wound was repaired with 10 simple interrupted 6 0 Prolene sutures. The wound repair was complex. The procedure was performed by myself. Patient has been informed that scarring will occur, although efforts have been made to minimize this. (Ben Samuels) ED Course/Re-evaluation: CHIEF COMPLAINT: Syncope, chin laceration HISTORY OF PRESENT ILLNESS: The patient is a 78 y/o male with a history of atrial fibrillation, hypertension , and syncope arriving to the emergency department complaining of a chin laceration secondary to a syncopal episode last night at 01:00am. The patient has been feeling lightheaded for several months and last had a syncopal episode 2 months ago. He saw his PCP and financial intern (Dr. Ayan Vogt) regarding this , without any significant findings. He had a heart catheterization through the right femoral artery recently and subsequently developed a thigh hematoma. Due to this hematoma he presented to the emergency department yesterday and was seen by the general surgeon. It was decided that the patient should stop taking Eliquis and follow up with the general surgeon on Sunday. The patient last took Eliquis on night, 2 days ago. Last night at 01:00am, the patient felt lightheaded and subsequently had a syncopal episode. After the syncopal episode he hit his chin against the table. He denies any other injuries. No fever, headache, body aches, chest pain, heart palpitations, shortness of breath, cough , abdominal pain, urinary or bowel complaints, numbness, paresthesias. REVIEW OF SYSTEMS: A comprehensive 10 system review of systems is otherwise negative aside from elements mentioned in the history of present illness and medical decision making. PHYSICAL EXAM: HR, BP, O2 Sat, RR. Temp noted General Appearance: Alert, well hydrated, appropriate, and non-toxic appearing. Head: Atraumatic without scalp tenderness or obvious injury Eyes: Pupils equal, round, reactive to light and accommodation, EOMI, no trauma , no injection. Ears: Clear bilaterally, no perforation, normal landmarks Nose: Atraumatic, no rhinorrhea, clear. Throat: There is no erythema or exudates, no lesions, normal tonsils, mucus membranes moist. Neck: Supple, 2+ carotid upstroke, nontender, no lymphadenopathy. Respiratory: No retractions, no distress, no wheezes, and no accessory muscle use. Lungs are clear to auscultation bilaterally. Cardiovascular: Regular rate and rhythm, no murmurs, rubs, or gallops. Bilateral carotid, radial, dorsalis pedis, and posterior tibial pulses intact. Good capillary refill all extremities. Gastrointestinal: Abdomen is soft, nontender, non-distended, no masses, no rebound, no guarding, no peritoneal signs. Musculoskeletal: Normal active ROM of all extremities, atraumatic. Neurological: Alert, appropriate, and interactive. The patient has normal DTRs and non-focal cranial nerves, motor, sensory, and cerebellar exam. Skin: 3.0cm linear chin laceration. No rashes, good turgor, no nodules on palpation. Past medical history: Atrial fibrillation, gout, hypothyroid, hypertension Past surgical history: Femoral cath Family history: Denies Social history: Son at bedside, lives in [place], retired DIAGNOSTICS/PROCEDURES/CRITICAL CARE TIME: Head CT: No acute findings. EKG: The 12 lead EKG was interpreted by myself as sinus rhythm with a rate of 77 , PAC's with long compensatory pauses. See hard copy and/or "tracemaster" electronic copy for interpretation. DIFFERENTIAL DIAGNOSIS: The differential diagnosis for the patient's syncope included but was not limited to vasovagal syncope, arrhythmia, dehydration, cardiogenic causes, neurogenic causes, and blood loss. The differential diagnosis for the patient's laceration included but was not limited to laceration, abrasion, skin tear, contusion, hematoma, ligamentous injury, muscular strain. MEDICAL DECISION MAKING: The patient is a 78 y/o male with a history of atrial fibrillation, hypertension , and syncope arriving to the emergency department presenting with a chin laceration secondary to a syncopal episode last night at 01:00am. The patient has been feeling lightheaded for several months and last had a syncopal episode 2 months ago. He saw his PCP and financial intern (Dr. Ayan Vogt) regarding this , without any significant findings. The patient last took Eliquis on night, 2 days ago. On exam the patient has a chin laceration. Patient probably as cardiogenic syncope as he has a history of a rhythm disturbance. Head CT, labs, and EKG ordered. Anabel Samuels, PAC, will suture the patient's chin laceration. 0832: I interpreted patient's EKG as sinus rhythm with a rate of 77, PAC's with long compensatory pauses. I will page cardiology. Head CT still pending. 918: I spoke with Dr. Olvera, radiologist, who reports that there are no acute findings on patient's head CT. 929: I consulted with Dr. Villarreal, financial intern, regarding this patient. He will consult on this patient during his admission. 0932: I consulted with the hospitalist service, Dr. Etienne accepts admission of this patient. 1000: Reassessed patient and had an extensive conversation regarding lab and imaging findings. They are comfortable with plan for admission to further investigate the recurrent syncope. Patient's laceration has been sutured by KOLE Chowdary, at this time. (Álvaro Ryder) - Data Points Laboratory Results: Laboratory Results 09/21/18 08:45 09/21/18 08:45 09/21/18 09/21/18 09/21/18 08:50 08:45 08:45 WBC RBC Hgb Hct MCV MCH MCHC RDW Plt Count MPV Neut % (Auto) Lymph % (Auto) [place] % (Auto) Eos % (Auto) Baso % (Auto) Nucleat RBC Rel Count Absolute Neuts (auto) Absolute Lymphs (auto) Absolute Monos (auto) Absolute Eos (auto) Absolute Basos (auto) Absolute Nucleated RBC Immature Gran % Immature Gran # PT 12.9 SEC SEC (12.0-15.0) INR 1.01 (0.83-1.16) APTT 31.0 SEC SEC (23.0-38.0) Sodium 132 mEq/L L mEq/L (135-145) Potassium 4.1 mEq/L mEq/L (3.5-5.2) Chloride 96 mEq/L L mEq/L (97-110) Carbon Dioxide 26 mEq/l mEq/l (22-31) Anion Gap 10 mEq/L mEq/L (6-14) BUN 12 mg/dL mg/dL (7-23) Creatinine 0.9 mg/dL mg/dL (0.7-1.3) Estimated GFR > 60 Glucose 107 mg/dL H mg/dL (70-100) Calcium 8.7 mg/dL mg/dL (8.5-10.4) Magnesium 1.9 mg/dL mg/dL (1.6-2.3) POC Troponin I 0.00 ng/mL ng/mL (0.00-0.08) NT-Pro-B Natriuret Pep 239 pg/mL pg/mL (0-450) 09/21/18 08:45 WBC 9.16 10^3/uL 10^3/uL (3.80-9.50) RBC 4.51 10^6/uL 10^6/uL (4.40-6.38) Hgb 15.3 g/dL g/dL (13.7-17.5) Hct 44.4 % % (40.0-51.0) MCV 98.4 fL fL (81.5-99.8) MCH 33.9 pg pg (27.9-34.1) MCHC 34.5 g/dL g/dL (32.4-36.7) RDW 12.5 % % (11.5-15.2) Plt Count 247 10^3/uL 10^3/uL (150-400) MPV 9.3 fL fL (8.7-11.7) Neut % (Auto) 68.1 % % (39.3-74.2) Lymph % (Auto) 21.8 % % (15.0-45.0) [place] % (Auto) 8.1 % % (4.5-13.0) Eos % (Auto) 1.4 % % (0.6-7.6) Baso % (Auto) 0.3 % % (0.3-1.7) Nucleat RBC Rel Count 0.0 % % (0.0-0.2) Absolute Neuts (auto) 6.23 10^3/uL 10^3/uL (1.70-6.50) Absolute Lymphs (auto) 2.00 10^3/uL 10^3/uL (1.00-3.00) Absolute Monos (auto) 0.74 10^3/uL 10^3/uL (0.30-0.80) Absolute Eos (auto) 0.13 10^3/uL 10^3/uL (0.03-0.40) Absolute Basos (auto) 0.03 10^3/uL 10^3/uL (0.02-0.10) Absolute Nucleated RBC 0.00 10^3/uL 10^3/uL (0-0.01) Immature Gran % 0.3 % % (0.0-1.1) Immature Gran # 0.03 10^3/uL 10^3/uL (0.00-0.10) PT INR APTT Sodium Potassium Chloride Carbon Dioxide Anion Gap BUN Creatinine Estimated GFR Glucose Calcium Magnesium POC Troponin I NT-Pro-B Natriuret Pep Point of Care Test Results: Chemistry 09/21/18 08:50 POC Troponin I 0.00 ng/mL ng/mL (0.00-0.08) Departure - Departure Disposition: [facility] Inpatient Acute Clinical Impression: PAC (premature atrial contraction) Syncope Qualifiers: Syncope type: unspecified Qualified Code(s): R55 - Syncope and collapse Condition: Fair Referrals: Anatoly Bunn MD [Primary Care Provider] - As per Instructions Report Scribed for: Álvaro Ryder Report Scribed by: Evelyn Treviño Date of Report: 09/21/18 Time of Report: 08:22
--- NOTE | 2018-09-21 08:55 | CPEKG ---
Test Reason : OPEN Blood Pressure : / mmHG Vent. Rate : 077 BPM Atrial Rate : 129 BPM P-R Int : 212 ms QRS Dur : 148 ms QT Int : 420 ms P-R-T Axes : 028 -42 -05 degrees QTc Int : 476 ms Sinus rhythm Atrial premature complexes Borderline prolonged HI interval RBBB and LAFB Confirmed by Álvaro Ryder ([id number]) on 09/21/2018 8:55:29 AM Referred By: Álvaro Ryder Confirmed By:Álvaro Ryder
[2018-09-21 08:57] LABS: PLATELET COUNT 247 10^3/uL (150-400)
[2018-09-21 09:14] LABS: INR 1.01 (0.83-1.16); PROTIME(PATIENT) 12.9 SEC (12.0-15.0)
[2018-09-21] MEDS ORDERED: ONDANSETRON DISINTEGRATING 4 MG TAB PO PRN (12:56)
[2018-09-21] MEDS ORDERED: ONDANSETRON 4 MG/2 ML VIAL IVP PRN (12:56)
[2018-09-21] MEDS ORDERED: ACETAMINOPHEN 325 MG TAB PO PRN (12:56)
--- NOTE | 2018-09-21 13:26 | PDCARPN ---
Cardiology Progress Note Chief Complaint: Syncope and right lower extremity swelling Assessment/Plan: Assessment: Patient is a 78 y/o male with history of pAF (on Eliquis with [id number] score of 5) and reported history of atrial fibrillation ablation, HTN, CLEMENCIA, PE ( history), obesity, and CVA (as per imaging of head in [place] recently), who presents back to [facility] ER after fall due to syncope. Within the past 24 hours, the patient presented to [facility] ER with right lower extremity pain. This work up initially had concerns of pseudoaneurysm, but further studies revealed only a compressive haematoma. Surgery was consulted and recommended against exploration given more risk than benefit (conservative management was recommended). Recommendation for hold on Eliquis for 48 hour period to determine if further, surgical intervention might be needed. Patient was then discharged to home, only to return to the ER after aforementioned syncopal event. No history of syncope in the recent past. Outpatient following and work up with Dr. Christa Vogt led to angiography after complaints of dyspnea in setting of elevated PVC burden. Angiography without critical CAD noted. Telemetry at present without atrial fibrillation noted, nor pauses. No cardiovascular complaints of chest pains or pressure. No PND or orthopnea. Compliance with medical therapy has been good. Outpatient office note from Dr. Christa Vogt, as well as ER visit from 09-20-18 and the ER visit from 09-21-18 were all reviewed with the patient. Right lower extremity swelling is easily appreciated. This physical finding is new since the angiogram, and aligns with the compressive haematoma that was appreciated with 09-20-18 ER visit. Plan: (1) Given the size of the haematoma noted, would continue brief hold on Eliquis - aware of CVA risk - in the setting of pAF and with prior CVA, but the leg haematoma seems to be secondary to the angiography, and a slow "leak" was hypothesized. - elevation of the leg was recommended - surgical reassessment in 24 hours, however, the recommendations when last rendered were for conservative management (if possible) (2) Would monitor patient by telemetry, while in house - outpatient arrangement for 30 day Preventice monitor to determine if pauses or bradyarrhythmias are being noted (3) Would continue therapy on statins for history of HLP - maintain annual assessment of cholesterol and LFTs (4) Levothyroxine for history of hypothyroidism should continue (5) Cardiology will continue to follow the patient while in house, and an outpatient follow up visit should also be arranged - consideration for LINQ implant (3 years of data) should 30 day monitor be unrevealing on this most recent episode of syncope - cardiology with concerns given "pauses" that were noted with the 09-20-18 admission Subjective: No cardiovascular complaints Objective: Vital Signs (8 Hrs) Temp Pulse Resp BP Pulse Ox 09/21/18 10:37 36.4 C 74 12 99/60 L 93 09/21/18 09:44 36.4 C 66 16 113/67 95 Intake/Output (24 Hrs) 09/20/18 09/21/18 09/22/18 05:59 05:59 05:59 Output Total 300 Balance -300 Output: Urine (ml) 300 Toilet 300 Other: Weight 109.4 kg Number of Voids Toilet 1 Result Diagrams: 09/21/18 08:45 09/21/18 08:45 EKG: sinus rhythm with frequent PACs Telemetry: normal sinus rhythm Echocardiogram: not performed with this admission - Physical Exam Constitutional: WDWN, healthy appearing, no apparent distress, obese Eyes: PERRL, EOMI Ears, Nose, Mouth, Throat: moist mucous membranes Cardiovascular: regular rate and rhythm, no murmurs, pulses symmetric bilat, No jugular vein distention Peripheral Pulses: 2+: dorsalis-pedis (R), dorsalis-pedis (L) Respiratory: clear to auscultate bilat, no crackles, no wheezes Gastrointestinal: normoactive bowel sounds Skin: other (edema to the RLE (moderate)) Musculoskeletal: muscular tenderness (to the right groin) Neurologic: AAOx3, CN II-XII grossly intact Psychiatric: cooperative, interactive, following commands ICD10 Worksheet Patient Problems: Problems Problem Status Onset PAC (premature atrial contraction) Acute Syncope Acute Atrial flutter Active Acute pancreatitis Acute Hyponatremia Acute
--- NOTE | 2018-09-21 13:27 | GHP ---
[f rep st] HISTORY AND PHYSICAL DATE OF ADMISSION: 09/21/2018 The patient is a pleasant 78-year-old gentleman with a history of atrial fibrillation, who had a recent cardiac catheterization, who presents to the hospital with an episode of syncope. The context of all this is that he has had lightheadedness and dizziness on-and-off for the last 6 months. He carries a diagnosis of atrial fibrillation, and he takes Eliquis as an outpatient. He had a diagnostic angiogram without intervention in the last 10 days, although the exact results are unknown to me. He reported to the emergency department in the evening on the with swelling in his right leg and pain in his groin. he was diagnosed with a right groin hematoma that is pressing on his right femoral vein, without pseudoaneurysm. Additionally, at that time, there was no evidence of an acute DVT. There was a fibrous band that may have been old thrombus in the saphenous vein, which is not a deep vein. He was sent home with outpatient followup and told to stop his Eliquis for a number of days. His last dose was on morning. Last night, he was getting up, going to the bathroom and returning to bed. He felt lightheaded and dizzy, and he fell, hitting his chin on his bedside table. He presented this morning, where he received a suture, and he was admitted for further evaluation. When I speak with the patient, he denies antecedent chest pain or dyspnea. He denies anginal-type symptoms. He has never had a PE. He is not short of breath at this time. He does not have pain with deep breaths. He is not clear that he totally lost consciousness. The patient has not worn an outpatient ZIO patch or other classroom monitor. REVIEW OF SYSTEMS: A complete 10-point review of systems was conducted and negative except as noted in the HPI. PAST MEDICAL HISTORY: Atrial fibrillation. He had an admission in January for gallstone pancreatitis with a cholecystectomy, which revealed a gangrenous gallbladder. He also has gout and hypothyroidism. SOCIAL HISTORY: He is a former smoker. Drinks a couple drinks a day. 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 FAMILY HISTORY: Parents are . PHYSICAL EXAMINATION: VITAL SIGNS: Temperature 36.4, blood pressure 117/73, pulse 75, breathing 16 times a minute, and 93% on room air. GENERAL: In no acute distress. HEENT: Sclerae are anicteric. Oropharynx is clear. Mucous membranes are moist. NECK: Supple, without lymphadenopathy or JVD. LUNGS: Clear to auscultation bilaterally. HEART: S1 and S2, without a systolic murmur. ABDOMEN: Soft, nontender, and nondistended. SKIN: Without rash. EXTREMITIES: His right lower extremity shows 3+ edema. . There is no edema on the left. He has a small, lemon-sized hematoma in his groin. He has a palpable dorsalis pedis pulse on the right. NEUROLOGIC: Nonfocal. LABORATORIES: White count 9.2; hematocrit 44, which is unchanged from 1 day prior; platelets are 247. INR was 1.22 yesterday. It is 1.01 with cessation of Eliquis. Sodium 132, potassium 4.1, chloride 96, bicarb 26, BUN 12, creatinine 0.9, glucose 107. BNP of 239. Troponin 0.00. EKG was interpreted by me. His EKG is sinus with multiple PACs today. Given the appearance of sinus, his conduction abnormalities are not new. There are no ST or T-wave changes. Noncontrast head CT images showed no acute intracranial findings. Diffuse atrophy. I have discussed the case with Saran Villarreal, Cardiology CUSTOMS INSPECTOR. ASSESSMENT/PLAN: A 78-year-old gentleman with presyncope, in the setting of multiple episodes of presyncope, groin hematoma, and right lower extremity edema. 1. Presyncope. He has a history of pulmonary embolism as noted. He has been on anticoagulation until the last 24 hours. At this point in time, we will follow him on telemetry. I think the patient warrants an outpatient ZIO patch. We will follow him on telemetry. An acute coronary syndrome has been considered. 2. Question DVT. I will re-ultrasound his leg, looking for DVT. 3. Groin hematoma. It seems like probably the most appropriate management of this is expectant observation, but I will leave this in the hands of the roller staker. 4. Hyponatremia. This is mild and improving from 24 hours prior. We will follow. 5. Alcohol use. He denies that this was a factor in this fall. DISPOSITION: Observation status. CODE: Full. /[id number]/MODL MTDD
[2018-09-21] MEDS: CEPACOL LOZENGE PO PRN ×2 (17:08→19:34)
[2018-09-22 04:31] LABS: PLATELET COUNT 222 10^3/uL (150-400)
--- NOTE | 2018-09-22 09:14 | PDCARPN ---
Cardiology Progress Note Chief Complaint: No cardiovascular complaints today. Possible improvement in the swelling to the right lower extremity. Assessment/Plan: Assessment: 09-22-18 Patient feeling well today. No events overnight. Slight improvement in the right lower extremity swelling has been noted (when the patient was seen this morning, the leg was not elevated). No chest pains or pressure. No PND or orthopnea. No atrial fibrillation has been appreciated on the night monitor. 09-21-18 Patient is a 78 y/o male with history of pAF (on Eliquis with [id number] score of 5) and reported history of atrial fibrillation ablation, HTN, CLEMENCIA, PE ( history), obesity, and CVA (as per imaging of head in [place] recently), who presents back to [facility] ER after fall due to syncope. Within the past 24 hours, the patient presented to [facility] ER with right lower extremity pain. This work up initially had concerns of pseudoaneurysm, but further studies revealed only a compressive haematoma. Surgery was consulted and recommended against exploration given more risk than benefit (conservative management was recommended). Recommendation for hold on Eliquis for 48 hour period to determine if further, surgical intervention might be needed. Patient was then discharged to home, only to return to the ER after aforementioned syncopal event. No history of syncope in the recent past. Outpatient following and work up with Dr. Christa Vogt led to angiography after complaints of dyspnea in setting of elevated PVC burden. Angiography without critical CAD noted. Telemetry at present without atrial fibrillation noted, nor pauses. No cardiovascular complaints of chest pains or pressure. No PND or orthopnea. Compliance with medical therapy has been good. Outpatient office note from Dr. Christa Vogt, as well as ER visit from 09-20-18 and the ER visit from 09-21-18 were all reviewed with the patient. Right lower extremity swelling is easily appreciated. This physical finding is new since the angiogram, and aligns with the compressive haematoma that was appreciated with 09-20-18 ER visit. Plan: (1) Maintain hold on Eliquis today given concerns about propagation of the haematoma to the right lower extremity - elevate the leg today - uncertain if surgery with plans to reassess the patient today - resumption of Eliquis therapy tomorrow is recommended (2) Maintain telemetry as at present (3) Would have LINQ implanted for more exterminator, less obtrusive assessment of rhythm (4) Statins should continue for HLP, and maintain annual assessment of cholesterol and LFTs (5) Patient to decide on ILR - if he opts to leave, we can arrange for this to be performed as outpatient Subjective: No cardiovascular complaints Objective: Vital Signs (8 Hrs) Temp Pulse Resp BP Pulse Ox 09/22/18 07:51 36.8 C 62 14 112/63 94 09/22/18 04:00 36.8 C 59 L 17 119/64 98 Intake/Output (24 Hrs) 09/21/18 09/22/18 09/23/18 05:59 05:59 05:59 Intake Total 1500 Output Total 1075 Balance 425 Intake: Oral (ml) 1500 Output: Urine (ml) 1075 Toilet 300 Urinal 775 Other: Weight 109.4 kg Intake Quantity Yes Sufficient Number of Voids Toilet 1 Result Diagrams: 09/22/18 03:28 09/22/18 03:28 Telemetry: Normal sinus rhythm - Physical Exam Constitutional: WDWN, healthy appearing, no apparent distress Eyes: PERRL, EOMI Ears, Nose, Mouth, Throat: moist mucous membranes Cardiovascular: regular rate and rhythm, no murmurs, pulses symmetric bilat, No jugular vein distention Peripheral Pulses: 2+: dorsalis-pedis (R), dorsalis-pedis (L) Respiratory: clear to auscultate bilat, no crackles, no wheezes Gastrointestinal: normoactive bowel sounds Skin: other (edema to the RLE) Musculoskeletal: no muscular tenderness Neurologic: AAOx3, CN II-XII grossly intact Psychiatric: cooperative, interactive, following commands ICD10 Worksheet Patient Problems: Problems Problem Status Onset PAC (premature atrial contraction) Acute Syncope Acute Atrial flutter Active Acute pancreatitis Acute Hyponatremia Acute
--- NOTE | 2018-09-22 12:00 | HOSPPROG ---
Hospitalist Progress Note Assessment/Plan: 78 yo M recent L heart cath a/w near syncope, groin hematoma, R leg edema near syncope: story of chronic near syncope very s/o rupesh arrhythmia/pause not on vandana agents continue telemetry LINQ in AM d/w dr jones groin hematoma: probably improved hold eliquis today no pseudoaneurysm edema: no dvt vein compression THERESA AF: rate OK dispo: change to inpt for groin hematoma, management of likely cardiac syncope Subjective: tele: no long pause or sig bradycardia (interp by me). case d/w dr jones Objective: Vital Signs Temp Pulse Resp BP Pulse Ox 36.4 C 58 L 16 130/75 H 96 09/22/18 11:34 09/22/18 11:34 09/22/18 11:34 09/22/18 11:34 09/22/18 11:34 Laboratory Results 09/22/18 03:28 09/22/18 03:28 09/21/18 09/22/18 09/23/18 05:59 05:59 05:59 Intake Total 1500 Output Total 1075 Balance 425 PT 12.9 SEC (12.0-15.0) 09/21/18 08:45 INR 1.01 (0.83-1.16) 09/21/18 08:45 - Physical Exam Constitutional: no apparent distress, appears nourished Eyes: PERRL, anicteric sclera Ears, Nose, Mouth, Throat: moist mucous membranes, hearing normal Cardiovascular: regular rate and rhythym, no murmur, rub, or gallop Respiratory: no respiratory distress, no rales or rhonchi Gastrointestinal: normoactive bowel sounds, soft, non-tender abdomen Genitourinary: No booth in urethra Skin: warm, normal color Musculoskeletal: full muscle strength, other (R groin hematoma same size (small lemon), softer. leg less edematous. R DP pulse 2+) Neurologic: AAOx3 Psychiatric: interacting appropriately ICD10 Worksheet Patient Problems: Problems Problem Status Onset PAC (premature atrial contraction) Acute Syncope Acute Atrial flutter Active Acute pancreatitis Acute Hyponatremia Acute
--- NOTE | 2018-09-22 15:49 | ASMTCMCOM ---
CM Note CM Note Notes: 09/22/2018 Case Management Note Pt admitted after multiple syncopal episodes. PT eval cleared pt for return home. No other therapy evals ordered at this time. PCP is Dr. Bunn. Met w/pt to discuss d/c needs. ERICK signed. Pt lives with Adrianne [phone] (home), (cell). Son Cricket [phone] lives nearby. [facility] provides nocturnal O2 and CPAP machine. Pt has not used home care or had a SNF rehab stay in the past. Case Management d/c poc: independent with follow up as directed. Case Management available if needs change. Date Signed: 09/22/2018 03:48 PM Electronically Signed By:Ilsa Stinson RN
[2018-09-22] MEDS: CEPACOL LOZENGE PO PRN (21:24)
--- NOTE | 2018-09-23 09:10 | PDCARPN ---
Cardiology Progress Note Chief Complaint: No cardiovascular complaint this morning. Patient states that he still does not feel quite normal Assessment/Plan: Assessment: 09-23-18 No cardiovascular complaints. No chest pains or pressure. No PND or orthopnea. No telemetry events were noted overnight. Ongoing right lower extremity swelling, but visually, improvement noted. Eliquis was on hold over the weekend given the compressive haematoma as potential cause for this physical finding. Discussions yesterday about a more penitentiary, less obtrusive arrhythmia monitor (LINQ) and placement of this device this morning. Patient was in agreement with these plans both yesterday and today. 09-22-18 Patient feeling well today. No events overnight. Slight improvement in the right lower extremity swelling has been noted (when the patient was seen this morning, the leg was not elevated). No chest pains or pressure. No PND or orthopnea. 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 09-21-18 Patient is a 78 y/o male with history of pAF (on Eliquis with [id number] score of 5) and reported history of atrial fibrillation ablation, HTN, CLEMENCIA, PE ( history), obesity, and CVA (as per imaging of head in [place] recently), who presents back to [facility] ER after fall due to syncope. Within the past 24 hours, the patient presented to [facility] ER with right lower extremity pain. This work up initially had concerns of pseudoaneurysm, but further studies revealed only a compressive haematoma. Surgery was consulted and recommended against exploration given more risk than benefit (conservative management was recommended). Recommendation for hold on Eliquis for 48 hour period to determine if further, surgical intervention might be needed. Patient was then discharged to home, only to return to the ER after aforementioned syncopal event. No history of syncope in the recent past. Outpatient following and work up with Dr. Christa Vogt led to angiography after complaints of dyspnea in setting of elevated PVC burden. Angiography without critical CAD noted. Telemetry at present without atrial fibrillation noted, nor pauses. No cardiovascular complaints of chest pains or pressure. No PND or orthopnea. Compliance with medical therapy has been good. Outpatient office note from Dr. Chritsa Vogt, as well as ER visit from 09-20-18 and the ER visit from 09-21-18 were all reviewed with the patient. Right lower extremity swelling is easily appreciated. This physical finding is new since the angiogram, and aligns with the compressive haematoma that was appreciated with 09-20-18 ER visit. Plan: (1) Would resume therapy on Eliquis (this therapy can be resumed after LINQ or before) (2) Statins to continue with CV risks and history of HLP (3) LINQ to be performed this morning (4) Outpatient follow up with cardiology to be arranged prior to discharge Subjective: No cardiovascular complaints Objective: Vital Signs (8 Hrs) Temp Pulse Resp BP Pulse Ox 09/23/18 07:48 36.8 C 66 16 139/90 H 93 09/23/18 03:38 36.8 C 61 13 118/78 93 Intake/Output (24 Hrs) 09/22/18 09/23/18 09/24/18 05:59 05:59 05:59 Intake Total 1500 675 Output Total 1075 700 400 Balance 425 -25 -400 Intake: Oral (ml) 1500 675 Output: Urine (ml) 1075 700 400 Toilet 300 Urinal 775 700 400 Other: Weight 109.4 kg Intake Quantity Yes Sufficient Number of Voids Toilet 1 2 Urinal 2 Result Diagrams: 09/22/18 03:28 09/22/18 03:28 Telemetry: sinus rhythm - Physical Exam Constitutional: WDWN, healthy appearing, no apparent distress, obese Eyes: PERRL, EOMI Ears, Nose, Mouth, Throat: moist mucous membranes Cardiovascular: regular rate and rhythm, no murmurs, pulses symmetric bilat, No jugular vein distention Peripheral Pulses: 2+: dorsalis-pedis (R), dorsalis-pedis (L) Respiratory: clear to auscultate bilat, no crackles, no wheezes Gastrointestinal: normoactive bowel sounds Skin: other (edema to the RLE continues to be noted) Musculoskeletal: asymmetric calves Neurologic: AAOx3, CN II-XII grossly intact Psychiatric: cooperative, interactive, following commands ICD10 Worksheet Patient Problems: Problems Problem Status Onset PAC (premature atrial contraction) Acute Syncope Acute Atrial flutter Active Acute pancreatitis Acute Hyponatremia Acute
[2018-09-23] MEDS ORDERED: LIDOCAINE 1% 300 MG/30 ML SDV ONE (10:10)
[2018-09-23] MEDS ORDERED: LIDOCAINE 1% 300 MG/30 ML SDV SC ONE (10:12)
--- NOTE | 2018-09-23 10:46 | SUROPNOTE ---
[facility] Operative Report - Surgery LOOP RECORDER IMPLANT Device implanted: [employer] Confirm Rx (SN: [id number]) Date of implant: 09-23-18 Indication for implant: Syncope Details of procedure: After consent was obtained, the patient was placed on the table in the usual sterile fashion. The patient was prepped and draped with exposure to the left sternal region. Lidocaine was used for local anesthetic. A small incision was made with a #11 blade. The provided blade was then used to facilitate appropriate width and breath. The rail delivery system was then inserted into the small incision. This rail system was then inverted to allow elevation for the device insertion. The device was implanted without difficulty. The rail delivery system was then removed. The pocket was inspected to ensure all of the device was securely inside the pocket. Franklin (3) were used to close the incision. There were no complications appreciated in this procedure. The device was interrogated to ensure adequate wave forms noted. Outpatient follow up with cardiology was scheduled.
--- NOTE | 2018-09-23 14:11 | HOSPPROG ---
Hospitalist Progress Note Assessment/Plan: 78 yo M recent L heart cath a/w near syncope, groin hematoma, R leg edema near syncope: story of chronic near syncope very s/o rupesh arrhythmia/pause not on vandana agents continue telemetry LINQ today groin hematoma: probably improved resume eliquis this PM no pseudoaneurysm edema: no dvt vein compression THERESA AF: rate OK dispo: home today Subjective: s/p LINQ. leg less swollen Objective: Vital Signs Temp Pulse Resp BP Pulse Ox 36.8 C 66 16 139/90 H 93 09/23/18 07:48 09/23/18 07:48 09/23/18 07:48 09/23/18 07:48 09/23/18 07:48 Laboratory Results 09/22/18 03:28 09/22/18 03:28 09/22/18 09/23/18 09/24/18 05:59 05:59 05:59 Intake Total 1500 675 Output Total 1075 700 400 Balance 425 -25 -400 PT 12.9 SEC (12.0-15.0) 09/21/18 08:45 INR 1.01 (0.83-1.16) 09/21/18 08:45 - Physical Exam Constitutional: no apparent distress, appears nourished Eyes: PERRL, anicteric sclera Ears, Nose, Mouth, Throat: moist mucous membranes, hearing normal Cardiovascular: regular rate and rhythym, no murmur, rub, or gallop Respiratory: no respiratory distress Gastrointestinal: normoactive bowel sounds, soft, non-tender abdomen Genitourinary: No booth in urethra Skin: warm, normal color Musculoskeletal: No other (hematome softer) Neurologic: AAOx3 ICD10 Worksheet Patient Problems: Problems Problem Status Onset PAC (premature atrial contraction) Acute Syncope Acute Atrial flutter Active Acute pancreatitis Acute Hyponatremia Acute
--- NOTE | 2018-09-23 14:48 | GDS ---
[f rep st] DISCHARGE SUMMARY DISCHARGE DIAGNOSES: 1. Presyncope. 2. Groin hematoma. Secondary to recent angiogram. 3. Atrial fibrillation. 4. Status post LINQ monitor. Please see admission History and Physical by Dr. Ja Etienne. The patient presented with presyncope. He had fallen at night lacerating his chin. He has a history of recurrent presyncopal episodes that is highly suggestive of bradyarrhythmia. There were no event s on telemetry here. The LINQ monitor in place. Regarding his hematoma, his Eliquis was held for 2 days. He is going to resume it tonight. It got softer while here. He had an ultrasound of his leg showing no pseudoaneurysm and no DVT. He is discharged home. Medications are Eliquis. /[id number]/MODL
[2018-09-23 15:37] VITALS: BP 164/85
== END 2018-09-23 16:24 | disposition home or self-care (01) ==
LOC: F2W 10:14
PROVIDERS: ADMIT Internal Medicine; ATTEND Internal Medicine
PROC: 0HQ1XZZ Repair Face Skin, External Approach (ICD-10-PCS; principal; 2018-09-21)
PROC: 0JH632Z Insertion of Monitoring Device into Chest Subcutaneous Tissue and Fascia, Percutaneous Approach (ICD-10-PCS; principal; 2018-09-21)
DX: R55 Syncope and collapse (principal); I49.1 Atrial premature depolarization; I97.638 Postprocedural hematoma of a circulatory system organ or structure following other circulatory system procedure; I48.91 Unspecified atrial fibrillation; I10 Essential (primary) hypertension; Z79.01 Long term (current) use of anticoagulants; Z87.891 Personal history of nicotine dependence
CPT/HCPCS: 12013; 33285; 70450; 93005; 93971; 97161; G0378; 84484-ER; C1764

== ENCOUNTER 2018-09-27 21:29 | Inpatient (IN) | payer OTHER ==
--- NOTE | 2018-09-27 21:31 | EDPHY ---
HPI/HX/ROS/PE/MDM Narrative: CHIEF COMPLAINT: LTA+ Fall HPI: This patient is an anticoagulated (Eliquis) 78 year old male with history of atrial fibrillation and recurrent presyncopal episodes s/p recent LINQ monitor placement 09/22/18. He arrives today via EMS on a limited trauma plus activation following a fall and possible near-syncopal vs. syncopal episode when getting out of bed this evening. The patient remembers the entire incident. The patient has a large hematoma over his left eye. He denies any other injuries, no extremity pain. He had a recent admission for presyncope and groin hematoma, during which the LINQ monitor was placed. He denies any other recent trauma or illness. REVIEW OF SYSTEMS: A comprehensive 10 system review of systems is otherwise negative aside from elements mentioned in the history of present illness and medical decision making. PMH: Atrial fibrillation. RBBB. Multiple presyncopal events s/p LINQ monitor placement 09/22/18. SOCIAL HISTORY: . Lives in [place]. Does not abuse tobacco, drugs, or alcohol. PHYSICAL EXAM: General:Patient is alert, in no acute distress. ENT:Eyes are normal to inspection. Large hematoma over left eye. Dried blood across face. ENT inspection normal. Neck: Normal inspection. Full range of motion. Respiratory:No respiratory distress. Breath sounds normal bilaterally. Cardiovascular: Regular rate and rhythm. Strong peripheral pulses. Normal cap refill. Abdomen:The abdomen is nontender to palpation. There are no peritoneal signs. There are normal bowel sounds. Back: Normal to inspection. No tenderness to palpation. Skin: Normal color. No rash. Warm and dry. Extremities: Normal appearance. Full range of motion. Neuro: Oriented x3. Normal motor function. Normal sensory function. ED Course: 21:30 Met EMS on arrival. 78 y/o male presents following a fall this evening with associated lightheadedness. He has a large hematoma over his left eye as well as dried blood across his face - no obvious laceration. Plan for CT head. Plan for EKG, labs including CBC, chemistries, POC troponin. EKG was ordered and interpreted by myself. Please see [employer] system for official reading. Reviewed laboratory studies. These are notable for hyponatremia: sodium 118. Labs otherwise largely unremarkable, POC troponin negative. 22:00 Patient definitively denies any loss of consciousness. He did feel lightheaded prior to his fall, similar to his other episodes of presyncope. We discussed admission for further evaluation. He is amenable to this. 22:[address] Spoke with hospitalist service. Dr. Sloan accepts admission for recurrent near-syncope, hyponatremia. - Data Points Imaging: Discussed imaging studies w/ canvas goods maker Radiologist Laboratory Results: Laboratory Results 09/27/18 21:30 09/27/18 21:30 09/27/18 09/27/18 09/27/18 21:44 21:30 21:30 WBC 8.88 10^3/uL 10^3/uL (3.80-9.50) RBC 4.35 10^6/uL L 10^6/uL (4.40-6.38) Hgb 14.8 g/dL g/dL (13.7-17.5) Hct 40.1 % % (40.0-51.0) MCV 92.2 fL fL (81.5-99.8) MCH 34.0 pg pg (27.9-34.1) MCHC 36.9 g/dL H g/dL (32.4-36.7) RDW 12.4 % % (11.5-15.2) Plt Count 280 10^3/uL 10^3/uL (150-400) MPV 9.7 fL fL (8.7-11.7) Neut % (Auto) 59.2 % % (39.3-74.2) Lymph % (Auto) 30.4 % % (15.0-45.0) Alexander % (Auto) 8.7 % % (4.5-13.0) Eos % (Auto) 1.2 % % (0.6-7.6) Baso % (Auto) 0.2 % L % (0.3-1.7) Nucleat RBC Rel Count 0.0 % % (0.0-0.2) Absolute Neuts (auto) 5.25 10^3/uL 10^3/uL (1.70-6.50) Absolute Lymphs (auto) 2.70 10^3/uL 10^3/uL (1.00-3.00) Absolute Monos (auto) 0.77 10^3/uL 10^3/uL (0.30-0.80) Absolute Eos (auto) 0.11 10^3/uL 10^3/uL (0.03-0.40) Absolute Basos (auto) 0.02 10^3/uL 10^3/uL (0.02-0.10) Absolute Nucleated RBC 0.00 10^3/uL 10^3/uL (0-0.01) Immature Gran % 0.3 % % (0.0-1.1) Immature Gran # 0.03 10^3/uL 10^3/uL (0.00-0.10) Sodium 118 mEq/L L* mEq/L (135-145) Potassium 4.2 mEq/L mEq/L (3.5-5.2) Chloride 88 mEq/L L mEq/L (97-110) Carbon Dioxide 17 mEq/l L mEq/l (22-31) Anion Gap 13 mEq/L mEq/L (6-14) BUN 6 mg/dL L mg/dL (7-23) Creatinine 0.7 mg/dL mg/dL (0.7-1.3) Estimated GFR > 60 Glucose 96 mg/dL mg/dL (70-100) Calcium 8.0 mg/dL L mg/dL (8.5-10.4) POC Troponin I 0.01 ng/mL ng/mL (0.00-0.08) Point of Care Test Results: Chemistry 09/27/18 21:44 POC Troponin I 0.01 ng/mL ng/mL (0.00-0.08) General Initial Vital Signs: Initial Vital Signs Temperature (C) 36.6 C 09/27/18 21:31 Heart Rate 91 09/27/18 21:31 Respiratory Rate 16 09/27/18 21:31 Blood Pressure 109/67 09/27/18 21:31 O2 Sat (%) 92 09/27/18 21:31 O2 Delivery Mode Room Air Allergies/Adverse Reactions: No Known Allergies Allergy (Verified 09/27/18 21:36) Home Medications: Medication Instructions Recorded Apixaban [Eliquis] 5 mg PO BID 05/27/17 Departure - Departure Referrals: Patient,NotPresent [Unknown] - As per Instructions Report Scribed for: Tristian Mckeon Report Scribed by: Ananya Ortiz Date of Report: 09/27/18 Physician Review and Approval Statement: Portions of this note were transcribed by an ED scribe. I personally performed the history, physical exam, and medical decision making; and confirm the accuracy of the information in the transcribed note.
[2018-09-27 21:43] LABS: PLATELET COUNT 280 10^3/uL (150-400)
[2018-09-27] MEDS ORDERED: ONDANSETRON DISINTEGRATING 4 MG TAB PO PRN (22:49)
[2018-09-27] MEDS ORDERED: ACETAMINOPHEN 325 MG TAB PO PRN (22:49)
[2018-09-27] MEDS ORDERED: ONDANSETRON 4 MG/2 ML VIAL IVP PRN (22:49)
[2018-09-27] MEDS ORDERED: LET GEL TOPICAL 1 EA SYR TP ONE ×2 (23:02→23:03)
--- NOTE | 2018-09-28 01:07 | PDGENHP ---
History and Physical - Chief Complaint Fall - History of Present Illness 78 yo M w/ hx of atrial fibrillation presents after a fall. The patient was walking to bed from the bathroom when he felt lightheaded and fell, hitting his L eyebrow. He suffered a laceration and contusion to that area. His head imaging is unremarkable. He tells me he does not think he lost consciousness, but he felt quite dizzy just prior to falling. He had a similar episode last week, for which he was admitted. No cause was found for this and a LINQ monitor was placed for arrhythmia monitoring. His work-up today is notable for significant hyponatremia. He takes apixaban for AF, which is his only medication. His ECG today is stable from prior with significant conduction disease noted. He is being admitted for management of hyponatremia and further investigation into his recurrent pre-syncope. Case discussed with Dr. Mckeon; records reviewed and summarized above. History Information - Allergies/Home Medication List Allergies/Adverse Reactions: No Known Allergies Allergy (Verified 09/27/18 21:36) Home Medications: Apixaban [Eliquis] 5 mg PO BID 05/27/17 [Last Taken 09/18/18] I have personally reviewed and updated: family history, medical history - Past Medical History atrial fibrillation, hypertension, pulmonary embolism Additional medical history: gout. hypothyroid - Surgical History Reports: cholecystectomy - Family History Additional family history: Mother had [place]'s disease. Father had mesothelioma - Social History Smoking Status: Former smoker Review of Systems Review of Systems: ROS: 10pt was reviewed & negative except for what was stated in HPI & below Physical Exam Physical Exam: Temp Pulse Resp BP Pulse Ox 36.8 C 78 16 115/76 95 09/28/18 00:42 09/28/18 00:42 09/28/18 00:42 09/28/18 00:42 09/28/18 00:42 Constitutional: no apparent distress, appears nourished Eyes: PERRL, other (L eyebrow laceratin, contusion, swelling) Ears, Nose, Mouth, Throat: moist mucous membranes, no oral mucosal ulcers Cardiovascular: systolic murmur, irregularly irregular Respiratory: no respiratory distress, clear to auscultation Gastrointestinal: normoactive bowel sounds, soft, non-tender abdomen Skin: warm, other (Firm swelling noted R groin) Musculoskeletal: full muscle strength, no muscle tenderness Neurologic: AAOx3, CN II-XII Intact Psychiatric: interacting appropriately, not anxious Lab Data & Imaging Review 09/27/18 21:30 09/27/18 23:52 WBC 8.88 10^3/uL (3.80-9.50) 09/27/18 21:30 RBC 4.35 10^6/uL (4.40-6.38) L 09/27/18 21:30 Hgb 14.8 g/dL (13.7-17.5) 09/27/18 21: Hct 40.1 % (40.0-51.0) 09/27/18 21: MCV 92.2 fL (81.5-99.8) 09/27/18: MCH 34.0 pg (27.9-34.1) 09/27/18: MCHC 36.9 g/dL (32.4-36.7) H 09/27/18 21: RDW 12.4 % (11.5-15.2) 09/27/18 21: Plt Count 280 10^3/uL (150-400) 09/27/18 21: MPV 9.7 fL (8.7-11.7) 09/27/18 21:30 Neut % (Auto) 59.2 % (39.3-74.2) 09/27/18 21:30 Lymph % (Auto) 30.4 % (15.0-45.0) 09/27/18 21: Coleman % (Auto) 8.7 % (4.5-13.0) 09/27/18 21: Eos % (Auto) 1.2 % (0.6-7.6) 09/27/18: Baso % (Auto) 0.2 % (0.3-1.7) L 09/27/18: Nucleat RBC Rel Count 0.0 % (0.0-0.2) 09/27/18 21:30 Absolute Neuts (auto) 5.25 10^3/uL (1.70-6.50) 09/27/18 21:30 Absolute Lymphs (auto) 2.70 10^3/uL (1.00-3.00) 09/27/18 21:30 Absolute Monos (auto) 0.77 10^3/uL (0.30-0.80) 09/27/18 21:30 Absolute Eos (auto) 0.11 10^3/uL (0.03-0.40) 09/27/18 21:30 Absolute Basos (auto) 0.02 10^3/uL (0.02-0.10) 09/27/18 21:30 Absolute Nucleated RBC 0.00 10^3/uL (0-0.01) 09/27/18 21:30 Immature Gran % 0.3 % (0.0-1.1) 09/27/18 21:30 Immature Gran # 0.03 10^3/uL (0.00-0.10) 09/27/18 21:30 Sodium 121 mEq/L (135-145) L 09/27/18 23:52 Potassium 4.1 mEq/L (3.5-5.2) 09/27/18 23:52 Chloride 90 mEq/L (97-110) L 09/27/18 23:52 Carbon Dioxide 21 mEq/l (22-31) L 09/27/18 23:52 Anion Gap 10 mEq/L (6-14) 09/27/18 23:52 BUN 6 mg/dL (7-23) L 09/27/18 23:52 Creatinine 0.7 mg/dL (0.7-1.3) 09/27/18 23:52 Estimated GFR > 60 09/27/18 23:52 Glucose 92 mg/dL (70-100) 09/27/18 23:52 Serum Osmolality 269 mosmo/kg (280-297) L 09/27/18 21:30 Calcium 8.0 mg/dL (8.5-10.4) L 09/27/18 23:52 POC Troponin I 0.01 ng/mL (0.00-0.08) 09/27/18 21:44 Imaging Review: Imaging Impressions Head CT 09/27/18 21:38 Impression: 1. No acute intracranial findings. 2. Diffuse cerebral atrophy with periventricular and subcortical low attenuation consistent with chronic microvascular ischemic gliosis. Findings discussed with Tristian Mckeon MD 09/27/2018 at 23:10. Visualized and Interpreted EKG results: Yes EKG Interpretation: Positive for: other (AF, bifascicular block) Assessment & Plan Assessment: 78 yo M w/ hx of atrial fibrillation presents after a fall due to presyncope; found to have hyponatremia. Plan: 1. Hyponatremia, acute - Serum Na 118 on admission, 121 two hours later without intervention. Unclear etiology for this; sodium was 129 at time of discharge on 09/22 so recent baseline not entirely normal. - Obtain UA, Osms, Leidy - Hold fluids for now, repeat BMP at 0600 - TSH recently WNL - Will check AM cortisol 2. Presyncope, recurrent - Patient was admitted for the same last week. On this admission the situation was likely exacerbated by hyponatremia, as detailed above. He currently has a ClearCareQ monitor in place for this reason. - Correct hyponatremia as above - Monitor on telemetry - Will check TTE noting recurrent nature of symptoms - AM cortisol ordered 3. Atrial fibrillation - On apixaban as an outpatient. - Continue home medications 4. Hx PE - On apixaban 5. R inguinal hematoma - Firm swelling notable in R groin; RLE swelling improved per patient with use of compression stockings. Diet - Regular Code - Full Ppx - apixaban Dispo - Admit under observation status
[2018-09-28 04:33] LABS: PLATELET COUNT 269 10^3/uL (150-400)
[2018-09-28] MEDS ORDERED: NS 1,000 ML IV SCH (08:30)
--- NOTE | 2018-09-28 10:16 | PDMN ---
Medical Necessity Medical necessity: Pt meets inpt criteria per MD order and Systemic Condition GRG, acute hyponatremia, sodium 118 on admit- 121 this AM, presyncope, recurrent w/fall sustaining laceration and contusion to L eyebrow area. PMHx includes recent hospitalization (09/21-5 for syncopal episodes), afib, HTN, and PE. Anticipate>2MN for further eval/management of above.
--- NOTE | 2018-09-28 10:47 | ECHO ---
[email or web address] [address] Main: [phone] Echocardiography Examination Transthoracic Name: HERMILA GARCIA MR#: [id number] Study Date: 09/28/2018 Study Time: 09:01 AM Date of : 1940 Age: 78 year(s) Height: 190.5 cm (75 in.) Weight: 104.33 kg (230 lb.) BSA: 2.33 m2 Gender: Male Examination: Echo Contrast: Image Quality: Adequate Rhythm: Atrial fibrillation Heart Rate: 112 bpm BP: 136 mmHg/95 mmHg Indication: recurrent syncope Procedure Staff Referring Physician: Superintendent Operations Division: Angela Hunt [facility] Reading Physician: Ion Cardona MD Requesting Provider: Ordering Physician: Jaime Hart Indication: recurrent syncope Measurements Chambers AV/MV Label Value Normal Value Label Value Normal Value LVOT Vmax 1.1 m/s (0.7m/s - 1.1m/s) AR PHT 0.66 s LVOTd 2.1 cm (1.9cm - 2.1cm) AR PHT 655 ms LVDd, 2D 4.7 cm (4.2cm - 5.9cm) AR Vmax 4.39 m/s LVDs, 2D 2.7 cm (2.1cm - 4cm) AV PGmax 9 mmHg IVSd, 2D 0.8 cm (0.6cm - 1.1cm) AV Vmax 1.49 m/s LVPWd, 2D 1.1 cm (0.6cm - 1cm) WILDA (Vmax) 2.6 cm2 LVEF, BP 60 % (55% - 70%) MV E Vmax 0.9 m/s LVEF, 2D 73 % (54% - 74%) MV DT 107 ms RVDd, 2D 2.8 cm (1.9cm - 3.8cm) TV/PV TAPSE 1.9 cm Label Value Normal Value LA Volume, BP 61 ml (18ml - 58ml) TR Pmax 0 mmHg LADs, 2D 3.9 cm (3cm - 4cm) TR Vmax 0.12 m/s LAESV index, BP 26.2 ml/m2 PV PGmax 5 mmHg RA Area 19 cm2 PV Vmax, Caliper 1.15 m/s (0.6m/s - 0.9m/s) Additional Vessels Label Value Normal Value AoAsc 3.6 cm AoRoot, 2D 3.4 cm (1.4cm - 2.6cm) Patient: HERMILA GARCIA Study Date: 09/28/2018 Page 1 of 2 09:01 AM Conclusions Left Ventricle: CONCLUSIONS:1)Atrial fibrillation.2)Normal LV size and systolic function with a LVEF of 60% and normal wall motions.3)Mild bi-atrial enlargement noted.4)Mild to moderate AI with no noted.5)Mild MR without MV prolapse. Findings Left Ventricle: Left ventricle is normal in size. CONCLUSIONS: 1)Atrial fibrillation. 2)Normal LV size and systolic function with a LVEF of 60% and normal wall motions. 3)Mild bi-atrial enlargement noted. 4)Mild to moderate AI with no noted. 5)Mild MR without MV prolapse. EF evaluated by EF (biplane Richardson's). The ejection fraction, measured by Simpsons method, is 60 %. The LV wall thickness is at the upper limits of normal. There are no regional wall motion abnormalities. Unable to assess Diastolic Dysfunction due to atrial fibrillation/a flutter. Right Ventricle: Normal size right ventricle. Right ventricular systolic function is normal. Left Atrium: The left atrium is mildly dilated. Right Atrium: The right atrium is mildly dilated. Mitral Valve: Mild mitral regurgitation. No mitral valve stenosis. There is mild mitral thickening. Aortic Valve: Mild to moderate aortic regurgitation is present. There is no aortic stenosis. The aortic valve is trileaflet. Tricuspid Valve: Tricuspid valve leaflets are structurally normal. No tricuspid regurgitation. Pulmonary artery pressure cannot be assessed due to inadequate TR signal. Pulmonic Valve: Pulmonic valve is poorly visualized. Aorta: The aortic root size in 2D measures 3.4 cm. The aortic root exhibits normal size. The ascending aorta measures 3.6 cm. Ascending aorta is normal in size. Aorta Measurements AoRoot, 2D is 3.4 cm. IVC: The inferior vena cava is normal in size and course. Pericardium: No pericardial effusion. Exam Details Procedure Ordered: Echo Procedure Status: Routine study Image Quality: Adequate Facility Location: Cardiac Echo 1 (No Signature Object) Patient: HERMILA GARCIA Study Date: 09/28/2018 Page 2 of 2 09:01 AM [id number]
[2018-09-28] MEDS: APIXABAN 5 MG TAB PO SCH ×2 (13:23→20:45)
--- NOTE | 2018-09-28 14:38 | HOSPPROG ---
Hospitalist Progress Note Assessment/Plan: * Hyponatremia -urine sodium low-matthew - will try gentle IVF and follow -continue Na check q4 hours today * Low am cortisol -check serene stim test in am * Recurrent pre-syncope -probably in part due to hyponatremia -has LINQ -ECHO negative * Afib -Eliquis -watch rate on tele * Chronic LE stasis changes -not much edema though at this time * Right groin hematoma due to recent cardiac cath Subjective: No new complaints. Objective: Vital Signs Temp Pulse Resp BP Pulse Ox 36.7 C 68 16 129/76 H 95 09/28/18 11:32 09/28/18 11:32 09/28/18 11:32 09/28/18 11:32 09/28/18 11:32 Laboratory Results 09/28/18 03:29 09/28/18 11:40 09/27/18 09/28/18 09/29/18 05:59 05:59 05:59 Intake Total 250 Output Total 550 Balance -300 tele reviewed - rate controlled afib ECHO - negative old chart reviewed - had negative cardiac cath here last month - Physical Exam Constitutional: no apparent distress, appears nourished, not in pain Cardiovascular: regular rate and rhythym, no murmur, rub, or gallop Respiratory: no respiratory distress, no rales or rhonchi, clear to auscultation Gastrointestinal: normoactive bowel sounds, soft, non-tender abdomen, no palpable masses Skin: other (LE stasis changes) Musculoskeletal: full muscle strength, no muscle tenderness, normal joint ROM Neurologic: AAOx3, sensation intact bilaterally Psychiatric: interacting appropriately, not anxious, not encephalopathic, thought process linear ICD10 Worksheet Patient Problems: Problems Problem Status Onset Atrial flutter Active Acute pancreatitis Acute Hyponatremia Acute PAC (premature atrial contraction) Acute Syncope Acute
--- NOTE | 2018-09-28 17:12 | ASMTCMCOM ---
CM Note CM Note Notes: Reviewed chart, pt admitted for hyponatremia. He fell after feeling dizzy this am. He lives at home with his . PT/OT evals pending, CM w/f for needs. DC Plan: TBD Date Signed: 09/28/2018 05:11 PM Electronically Signed By:Dawn Emery RN
[2018-09-28] MEDS ORDERED: FUROSEMIDE 20 MG/2 ML VIAL IVP ONE (21:00)
[2018-09-29 04:30] LABS: PLATELET COUNT 263 10^3/uL (150-400)
[2018-09-29] MEDS ORDERED: COSYNTROPIN 0.25 MG/2 ML SYRINGE IVP ONE (06:00)
[2018-09-29] MEDS: APIXABAN 5 MG TAB PO SCH ×2 (09:18→19:43)
--- NOTE | 2018-09-29 12:36 | PDCONSULT ---
Cyber Security Consultant Note: Assessment/Plan: Hyponatremia: seems to be new in the past 1 month, consistently high 120s- low 130s, this time down to 118, today 122. His urine studies are concerning for SIADH. Am cortisol fine. - Will place on 1000ml fluid restriction. - Will give some salt tabs today. - Will continue to monitor BID. - Will check TSH and CXR. - Will recheck urine studies in am. Thank you for the interesting consult. Nephrology will continue to follow, please call if you have any additional questions or concerns. H & P Stated Complaint: fall, syncopal episode, L eye hematoma Time Seen by Provider: 09/27/18 21:29 HPI/ROS: HPI: Mr. Lauren is a 78 yo M with h/o afib who presented to ER on 09/27 with complaints of syncope. Pt had just been seen earlier this month with presyncope , and at that time his sodium was a little low in high 120s to low 130s, which seems to be going on the past one month, no prior history of hyponatremia. Pt had sodium of 118 on presentation. It drifted up to 121 with no intervention but then was 119 yesterday with NS given. Today up to 122, prompting referral. ROS: positive per HPI, rest of 10-point ROS negative - Personal History Current Tetanus/Diphtheria Vaccine: Yes Tetanus Vaccine Date: UNKNOWN - Medical/Surgical History Hx Asthma: No Hx Chronic Respiratory Disease: No Hx Diabetes: No Hx Cardiac Disease: Yes Hx Renal Disease: No Hx Cirrhosis: No Hx Alcoholism: No Hx HIV/AIDS: No Hx Splenectomy or Spleen Trauma: No Other PMH: syncope, fall, R groin hematoma, cholecystectomy, acute pancreatitis , afib, gout, hypothyroid, HTN, PE (2004), AICD,CLEMENCIA - Family History Significant Family History: No pertinent family hx - Social History Smoking Status: Former smoker - Physical Exam Exam: General: alert and oriented, no acute distress Eyes: EOMI, PERRL, L eye with surrounding ecchymosis OP: Clear, MMM Neck: supple, no thyromegaly CV: irr/irr, +1 edema RLE, no edema LLE Resp: CTA bilat, nonlabored respirations Abd: Soft, NT/ND Neuro: CN II-XII grossly intact, no asterixis Psych: cooperative, appropriate mood and affect Skin: C/D/I, no rash Constitutional: Initial Vital Signs Temperature (C) 36.6 C 09/27/18 21:31 Heart Rate 91 09/27/18 21:31 Respiratory Rate 16 09/27/18 21:31 Blood Pressure 109/67 09/27/18 21:31 O2 Sat (%) 92 09/27/18 21:31 O2 Delivery Mode Room Air Allergies/Adverse Reactions: No Known Allergies Allergy (Verified 09/27/18 21:36) Home Medications: Medication Instructions Recorded Apixaban [Eliquis] 5 mg PO BID 05/27/17 Lab and Imaging 09/29/18 03:24 09/29/18 03:24 WBC 7.58 10^3/uL (3.80-9.50) 09/29/18 03:24 RBC 4.24 10^6/uL (4.40-6.38) L 09/29/18 03:24 Hgb 14.5 g/dL (13.7-17.5) 09/29/18 03:24 Hct 40.3 % (40.0-51.0) 09/29/18 03:24 MCV 95.0 fL (81.5-99.8) 09/29/18 03:24 MCH 34.2 pg (27.9-34.1) H 09/29/18 03:24 MCHC 36.0 g/dL (32.4-36.7) 09/29/18 03:24 RDW 12.1 % (11.5-15.2) 09/29/18 03:24 Plt Count 263 10^3/uL (150-400) 09/29/18 03:24 MPV 9.6 fL (8.7-11.7) 09/29/18 03:24 Neut % (Auto) 62.3 % (39.3-74.2) 09/29/18 03:24 Lymph % (Auto) 26.1 % (15.0-45.0) 09/29/18 03:24 Johnston % (Auto) 9.4 % (4.5-13.0) 09/29/18 03:24 Eos % (Auto) 1.5 % (0.6-7.6) 09/29/18 03:24 Baso % (Auto) 0.4 % (0.3-1.7) 09/29/18 03:24 Nucleat RBC Rel Count 0.0 % (0.0-0.2) 09/29/18 03:24 Absolute Neuts (auto) 4.73 10^3/uL (1.70-6.50) 09/29/18 03:24 Absolute Lymphs (auto) 1.98 10^3/uL (1.00-3.00) 09/29/18 03:24 Absolute Monos (auto) 0.71 10^3/uL (0.30-0.80) 09/29/18 03:24 Absolute Eos (auto) 0.11 10^3/uL (0.03-0.40) 09/29/18 03:24 Absolute Basos (auto) 0.03 10^3/uL (0.02-0.10) 09/29/18 03:24 Absolute Nucleated RBC 0.00 10^3/uL (0-0.01) 09/29/18 03:24 Immature Gran % 0.3 % (0.0-1.1) 09/29/18 03:24 Immature Gran # 0.02 10^3/uL (0.00-0.10) 09/29/18 03:24 Sodium 122 mEq/L (135-145) L 09/29/18 03:24 Potassium 4.7 mEq/L (3.5-5.2) 09/29/18 03:24 Chloride 92 mEq/L (97-110) L 09/29/18 03:24 Carbon Dioxide 22 mEq/l (22-31) 09/29/18 03:24 Anion Gap 8 mEq/L (6-14) 09/29/18 03:24 BUN 5 mg/dL (7-23) L 09/29/18 03:24 Creatinine 0.7 mg/dL (0.7-1.3) 09/29/18 03:24 Estimated GFR > 60 09/29/18 03:24 Glucose 88 mg/dL (70-100) 09/29/18 03:24 Serum Osmolality 269 mosmo/kg (280-297) L 09/27/18 21:30 Calcium 8.2 mg/dL (8.5-10.4) L 09/29/18 03:24 POC Troponin I 0.01 ng/mL (0.00-0.08) 09/27/18 21:44 Cortisol AM Sample 20.3 ug/dL (4.5-22.7) 09/29/18 07:00 Urine Color YELLOW 09/27/18 01:10 Urine Appearance CLEAR 09/27/18 01:10 Urine pH 5.0 (5.0-7.5) 09/27/18 01:10 Ur Specific Olmitz 1.014 (1.002-1.030) 09/27/18 01:10 Urine Protein NEGATIVE (NEGATIVE) 09/27/18 01:10 Urine Ketones TRACE (NEGATIVE) H 09/27/18 01:10 Urine Blood NEGATIVE (NEGATIVE) 09/27/18 01:10 Urine Nitrate NEGATIVE (NEGATIVE) 09/27/18 01:10 Urine Bilirubin NEGATIVE (NEGATIVE) 09/27/18 01:10 Urine Urobilinogen 2.0 EU (0.2-1.0) H 09/27/18 01:10 Ur Leukocyte Esterase NEGATIVE (NEGATIVE) 09/27/18 01:10 Urine Osmolality 439 mosmo/kg (300-900) 09/27/18 01:10 Ur Random Sodium 34 mEq/L (30-90) 09/28/18 20:20 Urine Glucose NEGATIVE (NEGATIVE) 09/27/18 01:10
--- NOTE | 2018-09-29 12:52 | HOSPPROG ---
Hospitalist Progress Note Assessment/Plan: * Hyponatremia -worsened on IVF NS - suspect SIADH -nephrology consult - d/w Dr. Wills -now of Fluid restriction and salt tabs * Recurrent pre-syncope -probably in part due to hyponatremia -has LINQ -ECHO negative * Afib -Eliquis -rate okay on tele * Chronic LE stasis changes -not much edema at this time * Right groin hematoma due to recent cardiac cath -H/H stable Subjective: No new complaints. Objective: Vital Signs Temp Pulse Resp BP Pulse Ox 36.6 C 78 18 129/82 H 97 09/29/18 12:00 09/29/18 12:00 09/29/18 12:00 09/29/18 12:00 09/29/18 12:00 Laboratory Results 09/29/18 03:24 09/29/18 03:24 09/28/18 09/29/18 09/30/18 05:59 05:59 05:59 Intake Total 250 925 Output Total 550 1700 150 Balance -300 -775 -150 tele reviewed - rate controlled afib, sometimes NSR - Physical Exam Constitutional: no apparent distress, appears nourished, not in pain Cardiovascular: regular rate and rhythym, no murmur, rub, or gallop Respiratory: no respiratory distress, no rales or rhonchi, clear to auscultation Gastrointestinal: normoactive bowel sounds, soft, non-tender abdomen, no palpable masses Skin: no rashes or abrasions, no fluctuance, no induration Neurologic: AAOx3, sensation intact bilaterally Psychiatric: interacting appropriately, not anxious, not encephalopathic, thought process linear ICD10 Worksheet Patient Problems: Problems Problem Status Onset Atrial flutter Active Acute pancreatitis Acute Hyponatremia Acute PAC (premature atrial contraction) Acute Syncope Acute
[2018-09-29] MEDS: SODIUM CHLORIDE 1,000 MG TAB PO SCH ×2 (14:15→18:03)
[2018-09-30 03:17] LABS: HIV TYPE 1 AND 2 NEGATIVE (NEGATIVE)
[2018-09-30] MEDS: APIXABAN 5 MG TAB PO SCH ×2 (08:31→21:58)
--- NOTE | 2018-09-30 10:47 | SOAPPROG ---
SOAP Progress Note Assessment/Plan: Assessment/Plan: Hyponatremia: in the past month has been consistently high 120s-low 130s, no prior history of hyponatremia. This time came in at 118, struggled to improved with IVFs, now up to 129 with salt tabs and fluid restriction. Repeat urine studies not consistent with SIADH, more concerning with high fluid intake and low solute intake - pt note that he has lost 15-20 pounds unintentionally in the past 6 months due to poor appetite. - Will continue 1L fluid restriction. - Will give 1 salt tab today. - Will continue to monitor daily. - Noted that am cortisol, TSH and CXR unrevealing. Subjective: No acute events overnight. Pt states he is feeling fine, has no new complaints today. Objective: Vital Signs Temp Pulse Resp BP Pulse Ox 36.8 C 72 18 136/83 H 94 09/30/18 08:00 09/30/18 08:00 09/30/18 08:00 09/30/18 08:00 09/30/18 08:00 Laboratory Results 09/29/18 03:24 09/30/18 08:05 09/29/18 09/30/18 10/01/18 05:59 05:59 05:59 Intake Total 925 250 Output Total 1700 2375 200 Balance -775 -2125 -200 General: alert and oriented, no acute distress Eyes: EOMI, PERRL, L eye with surrounding ecchymosis and edema OP: Clear CV: RRR Resp: nonlabored respirations Abd: Soft, NT Ext: no edema BLE Neuro: CN II-XII Grossly intact, no asterixis ICD10 Worksheet Patient Problems: Problems Problem Status Onset Atrial flutter Active Acute pancreatitis Acute Hyponatremia Acute PAC (premature atrial contraction) Acute Syncope Acute
--- NOTE | 2018-09-30 10:50 | ASMTCMCOM ---
CM Note CM Note Notes: CM reviewed pts chart and spoke to DINORA Velasco. Therapies are recommending HC. CM met w/ pt and introduced self. Pt is agreeable to HC services. Referral sent to [facility]. [facility] is able to accept. CM confirmed pts address, phone number and PCP. CM to follow. Plan: [facility]; PT, OT, RN Date Signed: 09/30/2018 10:49 AM Electronically Signed By:KENYON Rollins
--- NOTE | 2018-09-30 11:39 | ASMTCMCOM ---
CM Note CM Note Notes: CM met w/ pts Adrianne for dispo planing. Adrianne reports that he has had multiple falls over the last couple of months. CM presented her w/ the senior blue book. She does not want to make any decisions at this time. Pt is hoping to ultimately go home w/ HC services. Adrianne will ask her friends for recommendations prior to giving CM a definitive answer on where they would like to go if they needed SNF. CM to follow. Date Signed: 09/30/2018 11:38 AM Electronically Signed By:KENYON Rollisn
[2018-09-30] MEDS ORDERED: IOPAMIDOL (ISOVUE-300) 100 ML BTL ONE (14:58)
[2018-09-30] MEDS ORDERED: LACTULOSE 20 GM/30 ML UDCUP PO PRN (17:06)
[2018-09-30] MEDS ORDERED: BISACODYL 10 MG SUPP PR PRN (17:06)
[2018-09-30] MEDS ORDERED: MAGNESIUM HYDROXIDE 30 ML UDCUP PO PRN (17:06)
[2018-09-30] MEDS ORDERED: POLYETHYLENE GLYCOL 3350 17 GM PKT PO PRN (17:06)
--- NOTE | 2018-09-30 17:12 | HOSPPROG ---
Hospitalist Progress Note Assessment/Plan: * Hyponatremia -per Dr. Wills urine studies c/w high fluid intake with low solute intake -20lb unintentional weight loss with poor po intake recently -CT abd/pelvis without malignancy -consider outpatient GI eval if not up to date -Fluid restriction -holding salt tabs for now - encourage patient to liberally salt food at home * Recurrent pre-syncope -probably due to hyponatremia -LINQ during event reviewed with cardiology - no events -ECHO negative * Afib -Eliquis -rate controlled on tele * Chronic LE stasis changes -not much edema at this time * Right groin hematoma due to recent cardiac cath -H/H stable * Constipation - bowel protocol Subjective: Feeling much better and stronger. PT/OT recommended SNF - he is refusing Objective: Vital Signs Temp Pulse Resp BP Pulse Ox 36.4 C 77 21 H 130/79 H 95 09/30/18 15:30 09/30/18 15:30 09/30/18 15:30 09/30/18 15:30 09/30/18 15:30 Laboratory Results 09/29/18 03:24 09/30/18 08:05 09/29/18 09/30/18 10/01/18 05:59 05:59 05:59 Intake Total 925 250 225 Output Total 1700 2375 600 Balance -438 -1977 -224 d/w Dr. Wills - she recommended CT a/p CT a/p - constipation - Physical Exam Constitutional: no apparent distress, appears nourished, not in pain Cardiovascular: regular rate and rhythym, no murmur, rub, or gallop Respiratory: no respiratory distress, no rales or rhonchi, clear to auscultation Gastrointestinal: normoactive bowel sounds, soft, non-tender abdomen, no palpable masses Skin: no rashes or abrasions, no fluctuance, no induration Neurologic: AAOx3, sensation intact bilaterally Psychiatric: interacting appropriately, not anxious, not encephalopathic, thought process linear ICD10 Worksheet Patient Problems: Problems Problem Status Onset Atrial flutter Active Acute pancreatitis Acute Hyponatremia Acute PAC (premature atrial contraction) Acute Syncope Acute
[2018-09-30] MEDS: SENNOSIDES/DOCUSATE SODIUM TAB PO SCH (21:57)
[2018-10-01] MEDS: APIXABAN 5 MG TAB PO SCH ×2 (08:43→23:03)
[2018-10-01] MEDS: SENNOSIDES/DOCUSATE SODIUM TAB PO SCH ×2 (08:43→23:04)
[2018-10-01] MEDS ORDERED: SODIUM CHLORIDE 1,000 MG TAB PO ONE (10:42)
--- NOTE | 2018-10-01 12:22 | SOAPPROG ---
SOAP Progress Note Assessment/Plan: Assessment: hyponatremia resolving with fluid restriction and salt tabs Plan: OK for dismissal when OK with others renal signing off 10/01/18 12:19 Subjective: some nausea this morning no cp sob or anorexia at bedside spirits good Objective: Vital Signs Temp Pulse Resp BP Pulse Ox 36.5 C 78 16 117/76 95 10/01/18 07:49 10/01/18 09:50 10/01/18 07:49 10/01/18 09:50 10/01/18 09:50 Laboratory Results 09/29/18 03:24 10/01/18 04:20 09/30/18 10/01/18 10/02/18 05:59 05:59 05:59 Intake Total 250 665 Output Total 2375 1250 300 Balance -2125 -585 -300 Physical Exam - Physical Exam General Appearance: alert Neck: normal inspection Respiratory: No rhonchi, No wheezing Cardiac/Chest: regular rate, rhythm, edema, No friction rub Abdomen: normal bowel sounds, non-tender, soft Skin: warm/dry, other (L eye blackened after fall) Neuro/Psych: alert, normal mood/affect, oriented x 3 ICD10 Worksheet Patient Problems: Problems Problem Status Onset Atrial flutter Active Acute pancreatitis Acute Hyponatremia Acute PAC (premature atrial contraction) Acute Syncope Acute
--- NOTE | 2018-10-01 12:22 | HOSPPROG ---
Hospitalist Progress Note Assessment/Plan: 78 yo M with PMH that includes a fib, chronic venous stasis and recent right groin hematoma following cardiac cath here with recurrent pre-syncope and hyponatremia * Hyponatremia -per Dr. Wills urine studies c/w high fluid intake with low solute intake -20lb unintentional weight loss with poor po intake recently -Fluid restriction of 1L currently--unlikely he will be able to maintain that at home -has had salt tabs intermittently, Na currently 133 on 1L fluid restriction-- will dc home with salt tabs for now and plan to f/u with PCP in next week * Recurrent pre-syncope -probably due to hyponatremia -LINQ during event reviewed with cardiology - no events -- will f/u with cardiology after dc -ECHO negative * unintentional weight loss - CT a/p w/o e/o malignancy -recommend outpatient colonoscopy if not up to date on that * Afib -Eliquis -rate controlled on tele * Chronic LE stasis changes -not much edema at this time, stable * Right groin hematoma due to recent cardiac cath -H/H stable * Constipation - bowel protocol * dispo: home versus SNF, PT eval pending, discussed with family Patient new to my care. Old records reviewed and summarized as above. Care plan reviewed with CM/nursing/renal MD. Subjective: no significant overnight events, patient did have a pre syncopal episode in shower today and cardiology plans to interrogate the LINQ, otherwise no complaints Objective: Vital Signs Temp Pulse Resp BP Pulse Ox 36.5 C 78 16 117/76 95 10/01/18 07:49 10/01/18 09:50 10/01/18 07:49 10/01/18 09:50 10/01/18 09:50 Laboratory Results 09/29/18 03:24 10/01/18 04:20 09/30/18 10/01/18 10/02/18 05:59 05:59 05:59 Intake Total 250 665 Output Total 2375 1250 300 Balance -2125 -585 -300 awake alert large tiffanie orbital ecchymosis op clear mmm rrr no mrg cta b dec at bases soft nt nd ble edema l> r warm dry well perfused oriented appropriate - Time Spent With Patient Time Spent with Patient: greater than 35 minutes Time Spent with Patient: Greater than 35 minutes spent on this patients care, greater than 50% of time spent counseling, educating, and coordinating care regarding the above mentioned plan. ICD10 Worksheet Patient Problems: Problems Problem Status Onset Atrial flutter Active Acute pancreatitis Acute Hyponatremia Acute PAC (premature atrial contraction) Acute Syncope Acute
--- NOTE | 2018-10-01 13:22 | ASMTCMCOM ---
CM Note CM Note Notes: CM met w/ pt and Adrianne for dispo planning. Pt is agreeable to going to SNF. Pts would like a referral made to [facility] in [place]. Referral sent and CM asked for them to start getting auth. CM to follow. Plan: [facility] Date Signed: 10/01/2018 01:21 PM Electronically Signed By:KENYON Rollins
[2018-10-02] MEDS: SENNOSIDES/DOCUSATE SODIUM TAB PO SCH ×2 (08:14→19:38)
[2018-10-02] MEDS: APIXABAN 5 MG TAB PO SCH ×2 (08:15→19:37)
--- NOTE | 2018-10-02 14:25 | ASMTCMCOM ---
CM Note CM Note Notes: Pts case discussed w/ Dr. Dumont. [facility] is still in the process of getting auth from [employer]. PT is recommending inpatient rehab. An order for rehab has been. CM left a msg for Catalina to see if he is clinically approriate. In the meanwhile, the plan remains to be [facility]. [facility] is out of network w/ pt and pt will be responsible for paying for 50% out of pocket. Pt and Adrianne is ok w/ this. CM to follow. Date Signed: 10/02/2018 02:24 PM Electronically Signed By:KENYON Rollins
--- NOTE | 2018-10-02 16:00 | HOSPPROG ---
Hospitalist Progress Note Assessment/Plan: 78 yo M with PMH that includes a fib, chronic venous stasis and recent right groin hematoma following cardiac cath here with recurrent pre-syncope and hyponatremia * Hyponatremia -per Dr. Wills urine studies c/w high fluid intake with low solute intake -20lb unintentional weight loss with poor po intake recently -Na has now normalized-- off of salt tabs but still on 1L fluid restriction-- will loosen to 2L and monitor as that is more likely manageable at home * Recurrent pre-syncope -probably due to hyponatremia -LINQ in place, no events noted, will f/u with cardiology after dc -ECHO negative * unintentional weight loss - CT a/p w/o e/o malignancy -recommend outpatient colonoscopy if not up to date on that * Afib -Eliquis -rate controlled on tele * Chronic LE stasis changes -not much edema at this time, stable * Right groin hematoma due to recent cardiac cath -H/H stable * Constipation - bowel protocol * dispo: home versus SNF, PT eval pending, discussed with family Subjective: no significant overnight events, patient eager to get going to rehab but unclear when that will happen currently Objective: Vital Signs Temp Pulse Resp BP Pulse Ox 36.4 C 62 16 105/58 L 94 10/02/18 15:29 10/02/18 15:29 10/02/18 15:29 10/02/18 15:29 10/02/18 15:29 Laboratory Results 09/29/18 03:24 10/02/18 04:20 10/01/18 10/02/18 10/03/18 05:59 05:59 05:59 Intake Total 665 475 403 Output Total 1250 550 175 Balance -585 -75 228 awake alert large tiffanie orbital ecchymosis op clear mmm rrr no mrg cta b dec at bases soft nt nd ble edema l> r warm dry well perfused oriented appropriate - Time Spent With Patient Time Spent with Patient: greater than 35 minutes Time Spent with Patient: Greater than 35 minutes spent on this patients care, greater than 50% of time spent counseling, educating, and coordinating care regarding the above mentioned plan. ICD10 Worksheet Patient Problems: Problems Problem Status Onset Atrial flutter Active Acute pancreatitis Acute Hyponatremia Acute PAC (premature atrial contraction) Acute Syncope Acute
--- NOTE | 2018-10-03 08:38 | HOSPPROG ---
Hospitalist Progress Note Assessment/Plan: 78 yo M with PMH that includes a fib, chronic venous stasis and recent right groin hematoma following cardiac cath here with recurrent pre-syncope and hyponatremia. 1st encounter chart reviewed * Hyponatremia -sodium levels improved with fluid restriction and health study even with 2 L restriction * Recurrent pre-syncope -likely due to hyponatremia -LINQ in place to follow up with Cardiology as an outpatient -ECHO stable * unintentional weight loss - CT a/p w/o e/o malignancy - recommend outpatient colonoscopy - he had one 3 months ago - said he stopped eating much, didn't have an appetite, but this is much imrpoved * Afib, rate controlled -Eliquis * Chronic LE stasis changes -RLE is swollen, will ask nursing staff to use an chi wrap * Right groin hematoma due to recent cardiac cath -H/H stable * Constipation - bowel protocol * dispo: dc to [facility] Subjective: Tay is feeling well, anxious to dc Objective: Vital Signs Temp Pulse Resp BP Pulse Ox 36.6 C 63 14 103/60 92 10/03/18 08:00 10/03/18 08:00 10/03/18 08:00 10/03/18 08:00 10/03/18 08:00 Laboratory Results 09/29/18 03:24 10/03/18 03:39 10/02/18 10/03/18 10/04/18 05:59 05:59 05:59 Intake Total 475 853 Output Total 550 175 Balance -75 678 - Physical Exam Constitutional: no apparent distress, appears nourished, not in pain Eyes: PERRL, other (significant ecchymosis around left eye area, bruising above left eyebrow) Ears, Nose, Mouth, Throat: hearing normal Cardiovascular: irregularly irregular, edema (bilateral lower ext), No tachycardia Respiratory: no respiratory distress Gastrointestinal: normoactive bowel sounds Skin: warm Neurologic: AAOx3 Psychiatric: interacting appropriately ICD10 Worksheet Patient Problems: Problems Problem Status Onset Atrial flutter Active Acute pancreatitis Acute Hyponatremia Acute PAC (premature atrial contraction) Acute Syncope Acute
[2018-10-03] MEDS: APIXABAN 5 MG TAB PO SCH (08:42)
--- NOTE | 2018-10-03 09:56 | PDIAF ---
- Diagnosis Diagnosis: hyponatremia, episodes of pre syncope, afib Code Status: Full Code - Medication Management Discharge Medications: electronically signed and located in the Home Medication List. - Orders Services needed: Physical Therapy, Occupational Therapy Diet Recommendation: no restrictions on diet, fluid restriction (use comment for amount) (2000 ml/daily) Additional Instructions: scotty hose on for 12 hours, off for 12 hours f/u with nephrology if there are any other concerns about low sodium levels f/u with your primary care doctor in regards to weight loss - Labs/Radiology BMP Date: 10/10/18 - Follow Up Care Current Providers and Referrals: Patient,NotPresent [Unknown] - As per Instructions
[2018-10-03] MEDS: SENNOSIDES/DOCUSATE SODIUM TAB PO SCH (10:15)
--- NOTE | 2018-10-03 10:15 | GDS ---
[f rep st] DISCHARGE SUMMARY DISCHARGE DIAGNOSES: 1. Hyponatremia. 2. Recurrent presyncope. 3. Unintentional weight loss. 4. Atrial fibrillation, rate controlled. 5. Chronic lower extremity stasis. 6. Right groin hematoma due to recent cardiac catheterization. 7. Constipation. CONSULTATION: Dr. Elsi Wills HISTORY OF PRESENT ILLNESS: Mr. Lauren is a 78-year-old gentleman who has a past medical history that includes atrial fibrillation, chronic venous stasis, and recent right groin hematoma following a cardiac cath. He had recurrent presyncopal episodes as well as associated hyponatremia. His low sodium levels resolved during his stay. He will be discharged to [facility]. HOSPITAL COURSE: 1. Hyponatremia. Sodium levels improved significantly with fluid restriction. 2. Recurrent presyncope. This is likely due to the hyponatremia. He has a LINQ in place. He is to follow up with Cardiology as an outpatient. 3. Unintentional weight loss. He had a CT of his abdomen and pelvis without etiology of malignancy. He had a colonoscopy 3 months ago, which was noted to be stable. He said he did not have an appetite, but now his appetite is much improved. Recommending follow up with his primary care provider. 4. Atrial fibrillation. He is rate controlled. He is on Eliquis. 5. Chronic lower extremity stasis. His right lower extremity is somewhat swollen. I suspect this is secondary from the heart catheterization. We will wrap this with an Stephon wrap and continue THERESA hose. 6. Right groin hematoma. His hemoglobin and hematocrit are stable. 7. Constipation bowel protocol. DISCHARGE CONDITION: Stable. Blood pressure is 103/60, heart rate is 63, respiratory rate of 14, O2 saturations on room air 92%, temperature 36.6 Celsius. MEDICATIONS AT DISCHARGE: Please see the EMR. DISCHARGE INSTRUCTIONS: 1. To follow up with Cardiology. 2. Follow up with his primary care provider in regard to his weight loss. 3. If he has any further issues with low sodium, to follow up with Nephrology. Greater than 30 minutes discharging and coordinating the patient's care. /[id number]/MODL MTDD
--- NOTE | 2018-10-03 10:52 | ASMTCMCOM ---
CM Note CM Note Notes: CM spoke with [facility] who reports that auth from [employer] is still pending. They will call when they have authorization. [facility] also called to report that pt is too acute for inpatient rehab and SNF would be more appropriate. Updates and dc orders sent to [facility]. CM to follow. D/C Plan: [facility] SNF pending insurance authorization Date Signed: 10/03/2018 10:51 AM Electronically Signed By:Abbey Gandhi
--- NOTE | 2018-10-03 12:33 | ASMTDCNOTE ---
Case Management Discharge Discharge Order Complete? Answers: Yes Patient to Obtain Answers: Other Notes: [facility] Medications Transportation Arranged Answers: Other Notes: SNF Transport will Pick (Date 10/03/2018 02:00 PM & Time) Faxed Final Orders Answers: Yes Agency/Facility Transfer Answers: Yes Report Printed & Faxed to Receiving Agency Family Notified Answers: Yes Notes: in the room Discharge Comments Notes: Pt to discharge today to [facility]. RN given number for RN report. No further CM needs noted at this time. Date Signed: 10/03/2018 12:32 PM Electronically Signed By:Abbey Gandhi
--- NOTE | 2018-10-03 12:34 | ASMTLACE ---
LACE Length of stay for Answers: 4-6 days current admission Acuity / Level of Answers: Yes Care: Did the patient have an inpatient admission? Comorbidities - select Answers: Other Notes: Afib, HTN all that apply # of Emergency department Answers: 3-4 visits in the last 6 months Score: 11 Date Signed: 10/03/2018 12:33 PM Electronically Signed By:Abbey Gandhi
--- NOTE | 2018-10-03 12:40 | ASDISCHSUM ---
Discharge Information Plan Status:SNF Medically Cleared to Leave:10/03/2018 Discharge Date:10/03/2018 CM D/C Disposition:Assisted Facility ADT D/C Disposition:Assisted Facility Projected Discharge Date:10/03/2018 11:00 AM Transportation at D/C:Wheelchair Van Discharge Delay Reason: Follow-Up Date:10/03/2018 11:00 AM Discharge Slot: Final Diagnosis:syncope, hyponatremia Placement Information Referral Type:*Home Health Care Services Referral ID:[id number] Provider Name: Address 1: Phone Number: Address 2: Fax Number: City: Selection Factors: State: Referral Type:*Long-Term/SNF Referral ID:[facility]-[id number] Provider Name:Johny ramos [place] Address 1:[address] Address 2: City:[place] Selection Factors: State:[place] Patient Contact Information Contact Name:CAMILA Relationship: Address:[address] City:[place] Alternate Phone: State/Zip Code:[place] [address] Email: Financial Information Financial Class:BCOP Primary Plan Desc:[employer] PPO Primary Plan Number:[id number] Secondary Plan Desc:MEDICARE INPATIENT Secondary Plan Number:[id number] Assessment Information LACE LACE Length of stay for Answers: 4-6 days current admission Acuity / Level of Answers: Yes Care: Did the patient have an inpatient admission? Comorbidities - select Answers: Other Notes: Afib, HTN all that apply # of Emergency department Answers: 3-4 visits in the last 6 months Score: 11 Date Signed: 10/03/2018 12:33 PM Electronically Signed By:Abbey Gandhi [facility] CM Progress Note CM Note CM Note Notes: Reviewed chart, pt admitted for hyponatremia. He fell after feeling dizzy this am. He lives at home with his . PT/OT lisa pending, CM w/f for needs. DC Plan: TBD Date Signed: 09/28/2018 05:11 PM Electronically Signed By:Dawn Emery RN [facility] CM Progress Note CM Note CM Note Notes: CM reviewed pts chart and spoke to DINORA Velasco. Therapies are recommending HC. CM met w/ pt and introduced self. Pt is agreeable to HC services. Referral sent to [facility]. [facility] is able to accept. CM confirmed pts address, phone number and PCP. CM to follow. Plan: [facility]; PT, OT, RN Date Signed: 09/30/2018 10:49 AM Electronically Signed By:KENYON Rollins [facility] CM Progress Note CM Note CM Note Notes: CM met w/ pts Adrianne for dispo planing. Adrianne reports that he has had multiple falls over the last couple of months. CM presented her w/ the [employer] book. She does not want to make any decisions at this time. Pt is hoping to ultimately go home w/ HC services. Adrianne will ask her friends for recommendations prior to giving CM a definitive answer on where they would like to go if they needed SNF. CM to follow. Date Signed: 09/30/2018 11:38 AM Electronically Signed By:KENYON Rollins [facility] CM Progress Note CM Note CM Note Notes: CM met w/ pt and Adrianne for dispo planning. Pt is agreeable to going to SNF. Pts would like a referral made to [facility] in [place]. Referral sent and CM asked for them to start getting auth. CM to follow. Plan: [facility] Date Signed: 10/01/2018 01:21 PM Electronically Signed By:KENYON Rollins [facility] CM Progress Note CM Note CM Note Notes: Pts case discussed w/ Dr. Dumont. [facility] is still in the process of getting auth from [employer]. PT is recommending inpatient rehab. An order for rehab has been. CM left a msg for Catalina to see if he is clinically approriate. In the meanwhile, the plan remains to be [facility]. [facility] is out of network w/ pt and pt will be responsible for paying for 50% out of pocket. Pt and Adrianne is ok w/ this. CM to follow. Date Signed: 10/02/2018 02:24 PM Electronically Signed By:KENYON Rollins [facility] CM Progress Note CM Note CM Note Notes: CM spoke with [facility] who reports that auth from [employer]/ is still pending. They will call when they have authorization. [facility] also called to report that pt is too acute for inpatient rehab and SNF would be more appropriate. Updates and dc orders sent to [facility]. CM to follow. D/C Plan: [facility] pending insurance authorization Date Signed: 10/03/2018 10:51 AM Electronically Signed By:Abbey Gandhi Case Management Discharge Plan Note Case Management Discharge Discharge Order Complete? Answers: Yes Patient to Obtain Answers: Other Notes: [facility] Medications Transportation Arranged Answers: Other Notes: SNF Transport will Pick (Date 10/03/2018 02:00 PM & Time) Faxed Final Orders Answers: Yes Agency/Facility Transfer Answers: Yes Report Printed & Faxed to Receiving Agency Family Notified Answers: Yes Notes: in the room Discharge Comments Notes: Pt to discharge today to [facility]. RN given number for RN report. No further CM needs noted at this time. Date Signed: 10/03/2018 12:32 PM Electronically Signed By:Abbey Gandhi Intervention Information Intervention Type:*IM-Signed Date of Service:10/03/2018 10:05 AM Patient Type:Inpatient Staff Member:Eleanor Ireland Hours: Discipline: Severity: Comment:
[2018-10-03 13:41] VITALS: BP 117/69
--- NOTE | 2018-10-03 15:16 | CPEKG ---
Test Reason : OPEN Blood Pressure : / mmHG Vent. Rate : 089 BPM Atrial Rate : 153 BPM P-R Int : 077 ms QRS Dur : 155 ms QT Int : 400 ms P-R-T Axes : 000 -60 -06 degrees QTc Int : 487 ms Atrial fibrillation Ventricular premature complex RBBB and LAFB Confirmed by Tristian Mckeon ([id number]) on 10/03/2018 3:16:03 PM Referred By: Tristian Mckeon Confirmed By:Tristian Mckeon
== END 2018-10-03 14:05 | DRG 641 ==
LOC: EDUNIT# → F2W 09-28 00:17 → F3E 09-30 15:15
PROVIDERS: ADMIT Student in an Organized Health Care Education/Training Program; ATTEND Student in an Organized Health Care Education/Training Program
DX: E87.1 Hypo-osmolality and hyponatremia (principal); S05.12XA Contusion of eyeball and orbital tissues, left eye, initial encounter; W18.39XA Other fall on same level, initial encounter; Y92.013 Bedroom of single-family (private) house as the place of occurrence of the external cause; R55 Syncope and collapse; R63.4 Abnormal weight loss; I48.91 Unspecified atrial fibrillation; K59.00 Constipation, unspecified; I87.8 Other specified disorders of veins; M10.9 Gout, unspecified; E03.9 Hypothyroidism, unspecified; I10 Essential (primary) hypertension; G47.33 Obstructive sleep apnea (adult) (pediatric); Z79.01 Long term (current) use of anticoagulants; Z86.711 Personal history of pulmonary embolism; Z95.810 Presence of automatic (implantable) cardiac defibrillator; Z87.891 Personal history of nicotine dependence
CPT/HCPCS: 84484-ER; 97116-GP; 97161-GP; 97165-GO; 97530-GP; 97535-GO; G0390; J0834; Q9967

== ENCOUNTER 2018-10-22 06:06 | Emergency (ER) | payer OTHER | END 2018-10-22 07:36 | disposition home or self-care (01) ==

== ENCOUNTER → 2018-11-05 | Outpatient (CLI) | payer OTHER | LOC: FIMAGING 09:03 ==

== ENCOUNTER 2018-11-13 10:33 | Emergency (ER) | payer OTHER | END 2018-11-13 14:32 | disposition home or self-care (01) ==

== ENCOUNTER 2018-11-17 09:01 | Emergency (ER) | payer OTHER | END 2018-11-17 14:21 | disposition home or self-care (01) ==